=== PATIENT | male | born 1950 | race Caucasian/White ===

== ENCOUNTER 2024-03-09 15:05 | Outpatient (CLI) | payer MEDICARE, SELFPAY ==
--- OUTSIDE RECORDS SUMMARY | 2024-03-09 15:07 | XMS_ITS | Continuity of Care Document ---
Author Name [facility] Organization [facility] Care Team Providers Care Burling And Joining Supervisor Name Role Phone [facility] Unavailable Unavailable Problems Combined list of problems from Department of Defense and Veterans Affairs facilities. It does not include entries that were removed or entered in error. Problem Status Onset Date Problem Type Date of Resolution Comments Source Adenocarcinoma of rectum Active Condition Jan 26, 2019 Entered By: BOLA AWLSH CCA Comment: removed with colonocsopy, fregeunt F/U all neg [facility] Allergic rhinitis Active Condition Au g 2018 Entered By: BOLA WALSH [facility] Comment: had nasal polyps removed once [facility] Benign prostatic hyperplasia Active Condition Jan 26, 2019 Entered By: BOLA WALSH CCA Comment: bx in 2019 benign [facility] Chronic obstructive lung disease Active Condition [facility] Elevated diaphragm Active Condition A 2018 Entered By: BOLA WALSH CCA Comment: left elevated since 2017 [facility] Former heavy tobacco smoker Active Condition Jan 26, 2019 Entered By: BOLA WALSH CCA Comment: quit 1988 [facility] H/O: Deep vein thrombosis Active Condition Jan 26, 2019 Entered By: BOLA WALSH [facility] Comment: treated with blood thinner 9 months no recurrence [facility] Moderate persistent asthma Active Condition [facility] Obesity Active Condition [facility] Obstructive sleep apnea of adult Active Condition Jan 26, 2019 Entered By: BOLA WALSH CCA Comment: uses CPAP at night [facility] Pain in right knee Active Condition [facility] Diagnosis: ICD-10-CM Z01.118 Encntr for exam of ears and hearing w oth abnormal findings Active Diagnosis [facility] Diagnosis: ICD-10-CM J45.40 Moderate persistent asthma, uncomplicated Active Diagnosis [facility] Diagnosis: ICD-10-CM R22.32 Localized swelling, mass and lump, left upper limb Active Diagnosis [facility] Diagnosis: ICD-10-CM Z71.89 Other specified counseling Active Diagnosis [facility] Diagnosis: ICD-10-CM K43.9 Ventral hernia without obstruction or gangrene Active Diagnosis [facility] Diagnosis: ICD-10-CM L91.8 Other hypertrophic disorders of the skin Active Diagnosis [facility] Diagnosis: ICD-10-CM L98.9 Disorder of the skin and subcutaneous tissue, unspecified Active Diagnosis [facility] Diagnosis: ICD-10-CM Z00.8 Encounter for other general examination Active Diagnosis [facility] Medications Combined list of outpatient medications from Department of Defense and Veterans Affairs facilities.Medications provided include 1) outpatient medications from the last 15 months, and 2) patient-reported medications. Medication Details Route Status Patient Instructions Prescription Expires Prescription Number Last Dispense Date Ordering Provider Order Date Order Qty Source ALBUTEROL 90MCG/ACTUA T (CFC-F) INHL,ORAL,8 .5GM DOSE COUNTER ALBUTERO L 90MCG/AC TUAT (CFC-F) INHL,ORA L,8.5GM DOSE COUNTER Active INHALE 2 PUFFS BY INHALATI ON EVERY 4 HOURS NEEDED FOR SHORTNES S OF BREATH - SHAKE WELL Dec 27, 2023 2 Dec 27, 2024 [id number] Dec 28, 2023 [facility] (INHAL ATION) ACTIVE 12/27/2024 [id number] [facility]IRIDIANA WALSH 2023 2 [facility] ALBUTEROL 90MCG/ACTUA T (CFC-F) INHL,ORAL,8 .5GM DOSE COUNTER ALBUTERO L 90MCG/AC TUAT (CFC-F) INHL,ORA L,8.5GM DOSE COUNTER INHALE 2 PUFFS BY INHALATI ON EVERY 4 HOURS NEEDED FOR SHORTNES S OF BREATH - SHAKE WELL Jul 30, 2022 2 Jul 31, 2023 [id number] Mar 08, 2023 [facility] RESPIR ATORY (INHAL ATION) 07/31/2023 [id number] VIRIDIANA WALSH 2022 2 [facility] ASCORBIC ACID 500MG TAB ASCORBIC ACID 500MG TAB Active TAKE ONE TABLET BY MOUTH EVERY DAY October 27, 2023 100 October 27, 2024 [id number] B Jan 31, 2024 [facility] ORAL ACTIVE 10/27/2024 [id number] [facility] W[facility] 2023 100 [facility] ASCORBIC ACID 500MG TAB ASCORBIC ACID 500MG TAB Disconti nued TAKE ONE TABLET BY MOUTH EVERY DAY Jul 30, 2022 100 Jul 31, 2023 [id number] A Jun 18, 2023 [facility] ORAL DISCONT INUED 07/31/2023 [id number] [facility] 2022 100 [facility] BUDESONIDE SUSP,INHL BUDESONI DE SUSP,INH L Non-VA 0.5MG IN SALINE FOR NASAL RINSE NASAL EVERY DAY Jun 05, 2020 Non-[facility] Document ed by: JEAN-PAUL HICKS Document ed at: [facility] ACTIVE Lucy HICKS 2019 [facility] CHOLECALCIF ABILIO 25MCG (1,000UNIT) TAB CHOLECAL CIFEROL 25MCG (1,000UN IT) TAB Active TAKE TWO TABLETS BY MOUTH EVERY DAY October 27, 2023 200 October 27, 2024 [id number] Jan 31, 2024 [facility] ORAL ACTIVE 10/27/2024 [id number] [facility] 2023 200 [facility] CHOLECALCIF ABILIO 25MCG (1,000UNIT) TAB CHOLECAL CIFEROL 25MCG (1,000UN IT) TAB Disconti nued TAKE TWO TABLETS BY MOUTH EVERY DAY Jul 30, 2022 200 Jul 31, 2023 [id number] Jun 18, 2023 [facility] ORAL DISCONT INUED 07/31/2023 [id number] [facility] 2022 200 [facility] EPINEPHRINE (EQV-EPI-PE N) 0.3MG/0.3ML INJECTOR EPINEPHR INE (EQV-EPI -PEN) 0.3MG/0. 3ML INJECTOR Active INJECT 1 PEN DIRECTED NEEDED FOR SEVERE ALLERGIC REACTION Dec 27, 2023 2 Dec 27, 2024 [id number] Mar 16, 2024 [facility] ACTIVE 12/27/2024 [id number] [facility] 2023 [facility] EPINEPHRINE (EQV-EPI-PE N) 0.3MG/0.3ML INJECTOR EPINEPHR INE (EQV-EPI -PEN) 0.3MG/0. 3ML INJECTOR Disconti nued INJECT 1 PEN DIRECTED NEEDED FOR SEVERE ALLERGIC REACTION Jan 06, 2023 2 Jan 07, 2024 [id number] Dec 27, 2023 [facility] DISCONT INUED 01/07/2024 [id number] [facility] 2022 2 [facility] MONTELUKAST NA 10MG TAB [place] AST NA 10MG TAB Active TAKE ONE TABLET BY MOUTH EVERY DAY October 27, 2023 90 October 27, 2024 [id number] Jan 31, 2024 [facility] ORAL ACTIVE 10/27/2024 [id number] [facility] WAL[facility] 2023 90 [facility] MONTELUKAST NA 10MG TAB [place] AST NA 10MG TAB Disconti nued TAKE ONE TABLET BY MOUTH EVERY DAY Jul 30, 2022 90 Jul 31, 2023 [id number] Jun 18, 2023 [facility] ORAL DISCONT INUED 07/31/2023 [id number] [facility] WAL[facility] 2022 90 [facility] ROSUVASTATI N CA 20MG TAB ROSUVAST ATIN CA 20MG TAB Non-VA TAKE ONE TABLET BY MOUTH Dec 27, 2023 Non-VA Document ed by: VIRIDIANA WALSH Document ed at: [facility] ORAL ACTIVE VIRIDIANA WALSH 2023 [facility] TAMSULOSIN HCL 0.4MG CAP TAMSULOS IN HCL 0.4MG CAP Active TAKE ONE CAPSULE BY MOUTH AT BEDTIME FOR PROSTATE FOR PROSTATE Jan 28, 2024 90 Jan 28, 2025 [id number] Jan 28, 2024 [facility] ORAL ACTIVE 01/28/2025 [id number] [facility] W[facility] 2023 90 [facility] TAMSULOSIN HCL 0.4MG CAP TAMSULOS IN HCL 0.4MG CAP Disconti nued TAKE ONE CAPSULE BY MOUTH AT BEDTIME FOR PROSTATE FOR PROSTATE Dec 27, 2023 30 Jan 26, 2024 [id number] Dec 28, 2023 [facility] ORAL DISCONT INUED 01/26/2024 [id number] JILLIANVIRIDIANA 2023 30 [facility] Allergies, Adverse Reactions, Alerts Combined list of allergies from [facility] and [facility] facilities. It does not include entries that were removed or entered in error. Substance Category Reaction Severity Reaction type Status Date Reported Comments Source [facility] Propensity to adverse reaction (finding) Anaphylaxis active 9 [facility] [place] Propensity to adverse reaction (finding) Allergic rhinitis [facility] Propensity to adverse reaction (finding) Allergic rhinitis active 9 [facility] [place] Propensity to adverse reaction (finding) Allergic rhinitis active 9 [facility] [place] Propensity to adverse reaction (finding) Allergic rhinitis active 9 [facility] Immunizations Combined list of available immunizations from the Department of [facility] and [facility] facilities. Immunization Series Date Given Administered By Site Reaction Lot Number CVX Code Drug Php Mysql Developer Status Comments Source PNEUMOCOCCAL CONJUGATE PCV20, POLYSACCHARID E [id number] CONJUGATE, ADJUVANT, PF 2022 216 complet ed [facility] INFLUENZA, ADJUVANTED, QUADRIVALENT, PF 2022 205 complet ed [facility] COVID-19 (PFIZER), MRNA, LNP-S, BIVALENT, PF, 30 MCG/0.3 ML DOSE 2022 NARESH MORALES DELTO ID [id number] 300 complet ed [facility] INFLUENZA, HIGH-DOSE, QUADRIVALENT, PF 2021 197 complet ed [facility] INFLUENZA, UNSPECIFIED FORMULATION 2021 88 complet ed [facility] TDAP 2021 115 complet ed [facility] COVID-19 (MODERNA), MRNA, LNP-S, PF, 100 MCG/0.5ML DOSE OR 50 MCG/0.25ML DOSE 3 2021 207 complet ed [facility] INFLUENZA, HIGH-DOSE, QUADRIVALENT, PF 2020 197 complet ed [facility] INFLUENZA, UNSPECIFIED FORMULATION 2020 88 complet ed [facility] COVID-19 (MODERNA), MRNA, LNP-S, PF, 100 MCG/0.5 ML DOSE 2 2020 207 complet ed [facility] COVID-19 (MODERNA), MRNA, LNP-S, PF, 100 MCG/0.5 ML DOSE 1 2020 207 complet ed [facility] INFLUENZA, INJECTABLE, QUADRIVALENT, PRESERVATIVE FREE 2019 150 complet ed [facility] ZOSTER RECOMBINANT 2 2019 187 complet ed [facility] ZOSTER RECOMBINANT 1 2019 187 complet ed [facility] INFLUENZA, ADJUVANTED, TRIVALENT, PF 2018 168 complet ed [facility] INFLUENZA, HIGH-DOSE, TRIVALENT, PF 2017 135 complet ed [facility] INFLUENZA, HIGH-DOSE, TRIVALENT, PF 2016 135 complet ed [facility] PNEUMOCOCCAL POLYSACCHARID E PPV23 2014 33 complet ed [facility] INFLUENZA, SPLIT VIRUS, TRIVALENT, PF 2013 140 complet ed [facility] PNEUMOCOCCAL CONJUGATE PCV 13 2013 133 complet ed [facility] ZOSTER LIVE 2012 121 complet ed [facility] TDAP 2012 115 complet ed [facility] NOVEL INFLUENZA-H1N 1-09 2009 127 complet ed [facility] TD (ADULT), 2 LF TETANUS TOXOID, PRESERVATIVE FREE, ADSORBED 2002 09 complet ed [facility] TD(ADULT) UNSPECIFIED FORMULATION 2002 139 complet ed [facility] Results Combined list of recent chemistry, hematology and other laboratory results from Department of Defense and Veterans Affairs, ranging from 15 months to all on record, depending upon the facility. Order Name Results Value Reference Range Date Interpretation Specimen Comments Source HEMOGLOBI N A1C HEMOGLOBIN A1C/HEMOGLO BIN.TOTAL IN BLOOD 5.8 4.0 - 6.0 12/26 Specimen Type: BLOOD Comment: Values obtained from A1C measurement s can vary. For typical A1C assays, a reported value of 7.0 could actually be between 6.7 and 7.3 if measured by a reference method. A reported value of 9.0 could actually be between 8.7 and 9.3. Ref: [email or web address]://[email or web address] ngsp.org/[place] Pdata.asp Ordering Provider: LANETTE WALSH Report Released Date/Time: Dec 27, 2023 10:58 AM Reporting Lab: [facility] [address] Performing Lab: [facility] [address] [facility] CBC & DIFF LEUKOCYTES [#/VOLUME] IN BLOOD BY AUTOMATED COUNT 5.41 10*3/u L 4.0 - 11.0 01/06 Specimen Type: BLOOD Comment: Automated Differentia l Performed Ordering Provider: LANETTE WALSH Report Released Date/Time: Jan 06, 2023 10:26 AM Reporting Lab: [facility] [address] Performing Lab: [facility] [address] [facility] CBC & DIFF ERYTHROCYTE S [#/VOLUME] IN BLOOD BY AUTOMATED COUNT 4.89 10*6/u L 4.6 - 6.2 01/06 Specimen Type: BLOOD Comment: Automated Differentia l Performed Ordering Provider: LANETTE WALSH Report Released Date/Time: Jan 06, 2023 10:26 AM Reporting Lab: [facility] [address] Performing Lab: [facility] [address] [facility] CBC & DIFF HEMOGLOBIN [MASS/VOLUM E] IN BLOOD 15.1 g/dL 13.5 - 17.9 01/06 Specimen Type: BLOOD Comment: Automated Differentia l Performed Ordering Provider: LANETTE WALSH Report Released Date/Time: Jan 06, 2023 10:26 AM Reporting Lab: [facility] [address] Performing Lab: [facility] [address] [facility] CBC & DIFF HEMATOCRIT [VOLUME FRACTION] OF BLOOD BY AUTOMATED COUNT 46.2 41 - 54 01/06 Specimen Type: BLOOD Comment: Automated Differentia l Performed Ordering Provider: LANETTE WALSH Report Released Date/Time: Jan 06, 2023 10:26 AM Reporting Lab: [facility] [address] Performing Lab: [facility] [address] [facility] CBC & DIFF MCV [ENTITIC VOLUME] BY AUTOMATED COUNT 94.5 fL 80 - 100 01/06 Specimen Type: BLOOD Comment: Automated Differentia l Performed Ordering Provider: LANETTE WALSH Report Released Date/Time: Jan 06, 2023 10:26 AM Reporting Lab: [facility] [address] Performing Lab: [facility] [address] [facility] CBC & DIFF MCH [ENTITIC MASS] BY AUTOMATED COUNT 30.9 pg 27 - 33 01/06 Specimen Type: BLOOD Comment: Automated Differentia l Performed Ordering Provider: LANETTE WALSH Report Released Date/Time: Jan 06, 2023 10:26 AM Reporting Lab: [facility] [address] Performing Lab: [facility] [address] [facility] CBC & DIFF MCHC [MASS/VOLUM E] BY AUTOMATED COUNT 32.7 g/dL 32.0 - 37.5 01/06 Specimen Type: BLOOD Comment: Automated Differentia l Performed Ordering Provider: LANETTE WALSH Report Released Date/Time: Jan 06, 2023 10:26 AM Reporting Lab: [facility] [address] Performing Lab: [facility] [address] [facility] CBC & DIFF PLATELETS [#/VOLUME] IN BLOOD BY AUTOMATED COUNT 219 10*3/u L 150 - 400 01/06 Specimen Type: BLOOD Comment: Automated Differentia l Performed Ordering Provider: LANETTE WALSH Report Released Date/Time: Jan 06, 2023 10:26 AM Reporting Lab: [facility] [address] Performing Lab: [facility] [address] [facility] CBC & DIFF PLATELET MEAN VOLUME [ENTITIC VOLUME] IN BLOOD BY AUTOMATED COUNT 9.7 fL 7.4 - 10.4 01/06 Specimen Type: BLOOD Comment: Automated Differentia l Performed Ordering Provider: LANETTE WALSH Report Released Date/Time: Jan 06, 2023 10:26 AM Reporting Lab: [facility] [address] Performing Lab: [facility] [address] [facility] CBC & DIFF NEUTROPHILS /100 LEUKOCYTES IN BLOOD BY MANUAL COUNT 61.1 01/06 Specimen Type: BLOOD Comment: Automated Differentia l Performed Ordering Provider: LANETTE WALSH Report Released Date/Time: Jan 06, 2023 10:26 AM Reporting Lab: [facility] [address] Performing Lab: [facility] [address] [facility] CBC & DIFF LYMPHOCYTES /100 LEUKOCYTES IN BLOOD BY MANUAL COUNT 17.2 01/06 Specimen Type: BLOOD Comment: Automated Differentia l Performed Ordering Provider: LANETTE WALSH Report Released Date/Time: Jan 06, 2023 10:26 AM Reporting Lab: [facility] [address] Performing Lab: [facility] [address] [facility] CBC & DIFF MONOCYTES/1 00 LEUKOCYTES IN BLOOD BY AUTOMATED COUNT 10.0 01/06 Specimen Type: BLOOD Comment: Automated Differentia l Performed Ordering Provider: LANETTE WALSH Report Released Date/Time: Jan 06, 2023 10:26 AM Reporting Lab: [facility] [address] Performing Lab: [facility] [address] [facility] CBC & DIFF EOSINOPHILS /100 LEUKOCYTES IN BLOOD BY AUTOMATED COUNT 9.8 01/06 Specimen Type: BLOOD Comment: Automated Differentia l Performed Ordering Provider: LANETTE WALSH Report Released Date/Time: Jan 06, 2023 10:26 AM Reporting Lab: [facility] [address] Performing Lab: [facility] [address] [facility] CBC & DIFF BASOPHILS/1 00 LEUKOCYTES IN BLOOD BY MANUAL COUNT 1.3 01/06 Specimen Type: BLOOD Comment: Automated Differentia l Performed Ordering Provider: LANETTE WALSH Report Released Date/Time: Jan 06, 2023 10:26 AM Reporting Lab: [facility] [address] Performing Lab: [facility] [address] [facility] CBC & DIFF ERYTHROCYTE DISTRIBUTIO N WIDTH [RATIO] BY AUTOMATED COUNT 13.2 11.5 - 14.5 01/06 Specimen Type: BLOOD Comment: Automated Differentia l Performed Ordering Provider: LANETTE WALSH Report Released Date/Time: Jan 06, 2023 10:26 AM Reporting Lab: [facility] [address] Performing Lab: [facility] [address] [facility] CBC & DIFF LYMPHOCYTES [#/VOLUME] IN BLOOD BY AUTOMATED COUNT 0.93 10*3/u L 1.0 - 4.0 01/06 L Specimen Type: BLOOD Comment: Automated Differentia l Performed Ordering Provider: LANETTE WALSH Report Released Date/Time: Jan 06, 2023 10:26 AM Reporting Lab: [facility] [address] Performing Lab: [facility] [address] [facility] CBC & DIFF MONOCYTES [#/VOLUME] IN BLOOD BY AUTOMATED COUNT 0.54 10*3/u L 0.1 - 1.0 01/06 Specimen Type: BLOOD Comment: Automated Differentia l Performed Ordering Provider: LANETTE WALSH Report Released Date/Time: Jan 06, 2023 10:26 AM Reporting Lab: [facility] [address] Performing Lab: [facility] [address] [facility] CBC & DIFF NEUTROPHILS [#/VOLUME] IN BLOOD BY AUTOMATED COUNT 3.31 10*3/u L 2.0 - 7.7 01/06 Specimen Type: BLOOD Comment: Automated Differentia l Performed Ordering Provider: LANETTE WALSH Report Released Date/Time: Jan 06, 2023 10:26 AM Reporting Lab: [facility] [address] Performing Lab: [facility] [address] [facility] CBC & DIFF EOSINOPHILS [#/VOLUME] IN BLOOD BY AUTOMATED COUNT 0.53 10*3/u L 0 - 0.5 01/06 H Specimen Type: BLOOD Comment: Automated Differentia l Performed Ordering Provider: LANETTE WALSH Report Released Date/Time: Jan 06, 2023 10:26 AM Reporting Lab: [facility] [address] Performing Lab: [facility] [address] [facility] CBC & DIFF BASOPHILS [#/VOLUME] IN BLOOD BY AUTOMATED COUNT 0.07 10*3/u L 0 - 0.2 01/06 Specimen Type: BLOOD Comment: Automated Differentia l Performed Ordering Provider: LANETTE WALSH Report Released Date/Time: Jan 06, 2023 10:26 AM Reporting Lab: [facility] [address] Performing Lab: [facility] [address] [facility] CBC & DIFF IG(META,MYE LO,PRO) 0.6 01/06 Specimen Type: BLOOD Comment: Automated Differentia l Performed Ordering Provider: LANETTE WALSH Report Released Date/Time: Jan 06, 2023 10:26 AM Reporting Lab: [facility] [address] Performing Lab: [facility] [address] [facility] CBC & DIFF IMMATURE GRANULOCYTE S [PRESENCE] IN BLOOD BY AUTOMATED COUNT 0.03 10*3/u L 0 - 0.1 01/06 Specimen Type: BLOOD Comment: Automated Differentia l Performed Ordering Provider: LANETTE WALSH Report Released Date/Time: Jan 06, 2023 10:26 AM Reporting Lab: [facility] [address] Performing Lab: [facility] [address] [facility] COMPREHEN SIVE METABOLIC PANEL+MG CREATININE [MASS/VOLUM E] IN SERUM OR PLASMA 1.0 mg/dL 0.7 - 1.2 01/06 Specimen Type: PLASMA No comment entered. Ordering Provider: LANETTE WALSH Report Released Date/Time: Jan 06, 2023 10:26 AM Reporting Lab: [facility] [address] Performing Lab: [facility] [address] [facility] COMPREHEN SIVE METABOLIC PANEL+MG UREA NITROGEN [MASS/VOLUM E] IN SERUM OR PLASMA 16 mg/dL 8 - 26 01/06 Specimen Type: PLASMA No comment entered. Ordering Provider: ALNETTE WALSH Report Released Date/Time: Jan 06, 2023 10:26 AM Reporting Lab: [facility] [address] Performing Lab: [facility] [address] [facility] COMPREHEN SIVE METABOLIC PANEL+MG GLUCOSE [MASS/VOLUM E] IN SERUM OR PLASMA 109 mg/dL 70 - 100 01/06 H Specimen Type: PLASMA No comment entered. Ordering Provider: LANETTE WALSH Report Released Date/Time: Jan 06, 2023 10:26 AM Reporting Lab: [facility] [address] Performing Lab: [facility] [address] [facility] COMPREHEN SIVE METABOLIC PANEL+MG SODIUM [MOLES/VOLU ME] IN SERUM OR PLASMA 138 mmol/L 136 - 145 01/06 Specimen Type: PLASMA No comment entered. Ordering Provider: LANETTE WALSH Report Released Date/Time: Jan 06, 2023 10:26 AM Reporting Lab: [facility] [address] Performing Lab: [facility] [address] [facility] COMPREHEN SIVE METABOLIC PANEL+MG POTASSIUM [MOLES/VOLU ME] IN SERUM OR PLASMA 4.0 mmol/L 3.5 - 5.1 01/06 Specimen Type: PLASMA No comment entered. Ordering Provider: LANETTE WALSH Report Released Date/Time: Jan 06, 2023 10:26 AM Reporting Lab: [facility] [address] Performing Lab: [facility] [address] [facility] COMPREHEN SIVE METABOLIC PANEL+MG CHLORIDE [MOLES/VOLU ME] IN SERUM OR PLASMA 104 mmol/L 98 - 107 01/06 Specimen Type: PLASMA No comment entered. Ordering Provider: LANETTE WALSH Report Released Date/Time: Jan 06, 2023 10:26 AM Reporting Lab: [facility] [address] Performing Lab: [facility] [address] [facility] COMPREHEN SIVE METABOLIC PANEL+MG CARBON DIOXIDE, TOTAL [MOLES/VOLU ME] IN SERUM OR PLASMA 26 mmol/L 22 - 29 01/06 Specimen Type: PLASMA No comment entered. Ordering Provider: LANETTE WALSH Report Released Date/Time: Jan 06, 2023 10:26 AM Reporting Lab: [facility] [address] Performing Lab: [facility] [address] [facility] COMPREHEN SIVE METABOLIC PANEL+MG CALCIUM [MASS/VOLUM E] IN SERUM OR PLASMA 8.8 mg/dL 8.4 - 10.2 01/06 Specimen Type: PLASMA No comment entered. Ordering Provider: LANETTE WALSH Report Released Date/Time: Jan 06, 2023 10:26 AM Reporting Lab: [facility] [address] Performing Lab: [facility] [address] [facility] COMPREHEN SIVE METABOLIC PANEL+MG PROTEIN [MASS/VOLUM E] IN SERUM OR PLASMA 6.9 g/dL 6.0 - 8.3 01/06 Specimen Type: PLASMA No comment entered. Ordering Provider: LANETTE WALSH Report Released Date/Time: Jan 06, 2023 10:26 AM Reporting Lab: [facility] [address] Performing Lab: [facility] [address] [facility] COMPREHEN SIVE METABOLIC PANEL+MG ALBUMIN [MASS/VOLUM E] IN SERUM OR PLASMA 4.1 g/dL 3.5 - 5.2 01/06 Specimen Type: PLASMA No comment entered. Ordering Provider: LANETTE WALSH Report Released Date/Time: Jan 06, 2023 10:26 AM Reporting Lab: [facility] [address] Performing Lab: [facility] [address] [facility] COMPREHEN SIVE METABOLIC PANEL+MG BILIRUBIN.T OTAL [MASS/VOLUM E] IN SERUM OR PLASMA 0.9 mg/dL 0.2 - 1.2 01/06 Specimen Type: PLASMA No comment entered. Ordering Provider: LANETTE WALSH Report Released Date/Time: Jan 06, 2023 10:26 AM Reporting Lab: [facility] [address] Performing Lab: [facility] [address] [facility] COMPREHEN SIVE METABOLIC PANEL+MG MAGNESIUM [MASS/VOLUM E] IN SERUM OR PLASMA 2.1 mg/dL 1.6 - 2.6 01/06 Specimen Type: PLASMA No comment entered. Ordering Provider: LANETTE WALSH Report Released Date/Time: Jan 06, 2023 10:26 AM Reporting Lab: [facility] [address] Performing Lab: [facility] [id number] [facility] COMPREHEN SIVE METABOLIC PANEL+MG ANION GAP IN SERUM OR PLASMA 8 mmol/L 5 - 15 01/06 Specimen Type: PLASMA No comment entered. Ordering Provider: LANETTE WALSH Report Released Date/Time: Jan 06, 2023 10:26 AM Reporting Lab: [facility] [id number] Performing Lab: [facility] [id number] [facility] COMPREHEN SIVE METABOLIC PANEL+MG ALKALINE PHOSPHATASE [ENZYMATIC ACTIVITY/VO LUME] IN SERUM OR PLASMA 98 U/L 40 - 150 01/06 Specimen Type: PLASMA No comment entered. Ordering Provider: LANETTE WALSH Report Released Date/Time: Jan 06, 2023 10:26 AM Reporting Lab: [facility] [facility] [id number] Performing Lab: [facility] [id number] [facility] COMPREHEN SIVE METABOLIC PANEL+MG ALANINE AMINOTRANSF ERASE [ENZYMATIC ACTIVITY/VO LUME] IN SERUM OR PLASMA 13 U/L 01/06 Specimen Type: PLASMA No comment entered. Ordering Provider: LANETTE WALSH Report Released Date/Time: Jan 06, 2023 10:26 AM Reporting Lab: [facility] [id number] Performing Lab: [facility] [address] [facility] COMPREHEN SIVE METABOLIC PANEL+MG ASPARTATE AMINOTRANSF ERASE [ENZYMATIC ACTIVITY/VO LUME] IN SERUM OR PLASMA 17 U/L 01/06 Specimen Type: PLASMA No comment entered. Ordering Provider: LANETTE WALSH Report Released Date/Time: Jan 06, 2023 10:26 AM Reporting Lab: [facility] [phone] Performing Lab: [facility] [address] [facility] COMPREHEN SIVE METABOLIC PANEL+MG GLOMERULAR FILTRATION RATE/1.73 SQ M.PREDICTED [VOLUME RATE/AREA] IN SERUM, PLASMA OR BLOOD BY CREATININE- BASED FORMULA (CKD-EPI 2020) 79 01/06 Specimen Type: PLASMA No comment entered. Ordering Provider: LANETTE WALSH Report Released Date/Time: Jan 06, 2023 10:26 AM Reporting Lab: [facility] [phone] Performing Lab: [facility] [address] [facility] PSA PROSTATE SPECIFIC AG [MASS/VOLUM E] IN SERUM OR PLASMA 9.35 ng/mL 01/06 H Specimen Type: SERUM No comment entered. Ordering Provider: LANETTE WALSH Report Released Date/Time: Jan 06, 2023 10:26 AM Reporting Lab: [facility] [id number] Performing Lab: [facility] [phone] [facility] Vital Signs Combined list of inpatient and outpatient Vital Signs from Department of [facility] and [facility], ranging from 12 months to all on record, depending upon the facility. Vital Sign Value Date Comments Source SYSTOLIC BLOOD PRESSURE 130 12/27/2023 10:27:12 [facility] DIASTOLIC BLOOD PRESSURE 77 12/27/2023 10:27:12 [facility] PULSE OXIMETRY 96 12/27/2023 10:27:12 [facility] WEIGHT 251.7 12/27/2023 10:27:12 [facility] BMI 38kg/m2 12/27/2023 10:27:12 [facility] PAIN 6 12/27/2023 10:27:12 [facility] HEIGHT 68 12/27/2023 10:27:12 [facility] TEMPERATURE 98.1 12/27/2023 10:27:12 [facility] PULSE 69 12/27/2023 10:27:12 [facility] RESPIRATION 16 12/27/2023 10:27:12 [facility] Encounters Combined list of: 1) Encounters from Department of Veterans Affairs facilities going back up to thelast 18 months. 2) Encounters from the Department of [facility] facilities going back up to 280 months. Location Location Details Encounter Type Encounter Number Reason For Visit Attending Provider ADM Date DC Date Status Disposition Source SUJATHA COOPER [facility] Outpatient Encounter [id number] 01/06 CHARLES ROB [facility] OFFICE O/P EST MOD 30-39 MIN [id number] Diagnos is: ICD-10- CM Z00.8 Encount er for other general examina tion
Walter WALSH EBECCA L 01/06 [facility] UNLISTED SPEC DERM SVC/PX [id number] Diagnos is: ICD-10- CM L98.9 Disorde r of the skin and subcuta neous tissue, unspeci fied
SUSAN REIS 01/06 [facility] Outpatient Encounter [id number] Diagnos is: ICD-10- CM L91.8 Other hypertr ophic disorde rs of the skin
CHUSID,JAYA ECCA L 01/06 [facility] [place] [facility] Outpatient Encounter [id number] 01/06 [facility] OFF/OP CONSLTJ NEW/EST HI 55 [id number] Diagnos is: ICD-10- CM K43.9 Ventral hernia without obstruc tion or gangren e
NARDA CAMERON 01/26 [facility] PRO PHONE CALL 5-10 MIN [id number] Diagnos is: ICD-10- CM Z71.89 Other specifi ed counseling services manager ing<br/ > SINGH,AN JASWINDER G 01/27 [facility] Outpatient Encounter [id number] 01/27 [facility] OFFICE O/P EST HI 40-54 MIN [id number] Diagnos is: ICD-10- CM R22.32 Localiz ed garry g, mass and lump, left upper limb
NARDA CAMERON 02/19 [facility] [place] [facility] Outpatient Encounter [id number] 02/19 [facility] [place] [facility] Outpatient Encounter [id number] 02/24 [place] [facility] [place] [facility] Outpatient Encounter [id number] 02/26 [place] [facility] [place] [facility] Outpatient Encounter [id number] 03/01 [facility] OFFICE O/P EST MOD 30 MIN [id number] Diagnos is: ICD-10- CM J45.40 Moderat e persist ent asthma, uncompl icated< br/> Walter WALSHCA L 12/26 [facility] [place] [facility] OFF/OP EST MAY X REQ PHY/QHP [id number] Diagnos is: ICD-10- CM Z01.118 Encntr for exam of ears and hearing w oth abnorma l finding s
THADDEUS SIMON 01/12 [facility] Outpatient Encounter [id number] 01/27 [facility] Outpatient Encounter [id number] 01/30 [facility] Social History Combined list of available smoking, tobacco, and other social history from Department of Defense and [facility] facilities. Social History Type Response Date Comment Sourc e Tobacco smoking status NHIS VA-TOBACCO FORMER USER 12/27/2023 [facility] History of tobacco use MO-TOBACCO QUIT 1 5 YRS OR MORE 12/27/2023 [facility] History of tobacco use MO-TOBACCO QUIT 1 5 YRS OR MORE 01/06/2023 [facility] History of tobacco use VA-TOBACCO NEVER USED 01/05/2022 [facility] History of tobacco use VA-TOBACCO FORMER USER 01/14/2021 [facility] History of tobacco use MO-TOBACCO QUIT 1 5 YRS OR MORE 10/23/2019 [facility] History of tobacco use VA-TOBACCO FORMER USER 01/19/2019 [facility]
--- OUTSIDE RECORDS SUMMARY | 2024-03-09 15:09 | XMS_ITS | Encounter Summary ---
Author Organization [facility] Address [address] [place] [address] Care Team Providers Care Trauma Surgeon Name Role Phone Elsewhere, Pcp Primary Care Provider Unavailabl e Encounter Details Date Type Department Care Team (Late st Contact Info) Description 12/28/2023 12:10 PM CDT Lab [facility] [address] [place] [phone] Quentin Blevins M.D. [address] [place] [phone] Malignant Neoplasm Of Nose Basal Cell Social History Tobacco Use Types Packs/Day Years Used Date Smoking Tobacco: Former Cigarettes 0.5 21.1 0 11/28/1966 - 01/08/1988 Smokeless Tobacco: Former Chew Quit: 1997 Comments:about 1 pkg a week Alcohol Use Standard Drinks/Week Comments Yes 6 (1 standard drink = 0.6 oz pur e alcohol) occasional Social Connection and Isolat ion Panel [NHANES] Answer Date Recorded In a typical week, how many times do you talk on the phone with family, friends, or neighbors? More than three times a week 10/29/2020 How often do you get togethe r with friends or relatives? More than three times a week 10/29/2020 How often do you attend chur ch or gnosticist services? More than 4 times per year 10/29/2020 Do you belong to any clubs o r organizations such as taoism groups, unions, fraternal or athletic groups, or school groups? Yes 10/29/2020 How often do you attend meet ings of the clubs or organizations you belong to? More than 4 times per year 10/29/2020 Are you , , di vorced, , never , or living with a partner? 10/29/2020 AUDIT-C Answer Date Recorded Q1: How often do you have a drink containing alc ohol? 2-3 times a week 10/29/2020 Q2: How many drinks containi ng alcohol do you have on a typical day when you are drinking? 1 or 2 10/29/2020 Q3: How often do you have si x or more drinks on one occasion? Never 10/29/2020 Overall Financial Resource Strain (CARDIA) Answe r Date Recorded How hard is it for you to pa y for the very basics like food, housing, medical care, and heating? Not very hard 10/29/2020 PHQ-2 Answer Date Recorded PHQ-2 Score 0 11/15/2020 [facility] - Occupational Stress Questionnaire Answer Date Recorded Do you feel stress - tense, restless, nervous, or anxious, or unable to sleep at night because your mind is troubled all the time - these days? Not at all 10/29/2020 Exercise Vital Sign Answer Date Recorde d On average, how many days pe r week do you engage in moderate to strenuous exercise (like a brisk walk)? 0 days 10/29/2020 On average, how many minutes do you engage in exercise at this level? 0 min 10/29/2020 Hunger Vital Sign Answer Date Recorded Within the past 12 months, y ou worried that your food would run out before you got the money to buy more. Never true 10/30/19 21 Within the past 12 months, t he food you bought just didn't last and you didn't have money to get more. Never true 10/29/2020 PRAPARE - Transportation Answer Date Re corded In the past 12 months, has l ack of transportation kept you from medical appointments or from getting medications? No 10/19 In the past 12 months, has l ack of transportation kept you from meetings, work, or from getting things needed for daily living? No 10/29/2020 Housing Stability Vital Sign Answer Larry e Recorded In the last 12 months, was t here a time when you were not able to pay the mortgage or rent on time? No 10/29/2020 In the last 12 months, how many places have you lived? 2 10/29/2020 In the last 12 months, was t here a time when you did not have a steady place to sleep or slept in a fci (including now)? No 10/29/2020 Nutrition Answer Date Recorded Nutrition: EVOO Fat Source Yes 10/29 On average, how many serving s of fruits and vegetables do you eat per day (serving size is equal to 1 cup or approximately the size of a tennis ball)? 2-3 10/29/2020 Dental Answer Date Recorded Dental: Regular Dentist Unknown 11/02/19 Employment Answer Date Recorded Employment status Retired 10/29/2020 Education Answer Date Recorded What is the highest level of school you have completed or the highest degree you have received? 12th grade 02/10/2019 Sex and Gender Information Value Date Recorded Sex Assigned at Not on file Gender Identity Not on file Sexual Orientation Not on file documented as of this encounter Plan of Treatment Upcoming Encounters Date Type Department Care Team (Late st Contact Info) Description 03/13/2024 8:00 AM CDT Procedure visit Department of Dermatology in [place], [place] [address] [place] [phone] Quentin Blevins M.D. [address] [place] [phone] 03/15/2024 2:40 PM CDT Appointment Department of Laboratory Medicine and Pathology, [facility] in [place], [place] [address] [place] [phone] Rekha Munoz M.D. [address] [place] [phone] 03/15/2024 4:15 PM CDT Office Visit Department of Cardiovascular Medicine in [place], [place] [address] [place] [phone] Rekha Munoz M.D. [address] [place] [phone] documented as of this encounter Procedures Procedure Name Priority Date/Time Associated Diagnosis Comments PATHOLOGY REVIEW OF OUTSIDE MATERIAL Routine 12/28/2023 12:09 PM CDT Malignant Neoplasm Of Nose Basal Cell documented in this encounter Results * Pathology Review of Outside Material (12/28/2023 12:09 PM CDT) 12/31/2023 11:41 AM CDT DTL Report electronically signed by Aga Bowers M.D. I verify that I have examined all relevant slides/materi als for the specimen(s) and rendered or confirmed the diagnosis. 12/31/2023 11:41 AM CDT DTL Material Received A. [id number]: Skin, nose, dorsal, mid ? 2 stained slides 12/31/2023 11:41 AM CDT DTL Interpretation FINAL DIAGNOSIS A. ??Skin, nose, dorsal, mid, [id number], 11/02/2023: Superficial basal cell carcinoma, transected and involving biopsy borders Digital imaging was used in the diagnostic assessment of this case. 12/31/2023 11:41 AM CDT DTL Varies 12/28/2023 12:0 9 PM CDT 12/28/2023 12:10 PM CDT Quentin Blevins M.D. LAB SURG PATH [facility] [address] [place] [address], [facility] DTL [address] [place] [address] documented in this encounter Visit Diagnoses Diagnosis Malignant Neoplasm Of Nose Basal Cell documented in this encounter Care Teams Trauma Surgeon Relationship Specialty Start Date End Date Elsewhere, Pcp PCP - General Family Medicine 04/21/20 documented as of this encounter
--- OUTSIDE RECORDS SUMMARY | 2024-03-09 15:09 | XMS_ITS | Encounter Summary ---
Author Organization [facility] Address [address] [place] [address] Care Team Providers Care Dental Laboratory Supervisor Name Role Phone Elsewhere, Pcp Primary Care Provider Unavailabl e Encounter Details Date Type Department Care Team (Late st Contact Info) Description 12/24/2023 Orders Only Department of Dermatology in [place], [place] [address] [place] [phone] Quentin Blevins M.D. [address] [place] [phone] Malignant Neoplasm Of Nose Basal Cell (Primary Dx) Social History Tobacco Use Types Packs/Day Years [...] any clubs o r organizations such as mosque groups, unions, fraternal or athletic groups, or [...] Answer Date Recorded PHQ-2 Score 0 11/15/2020 [facility]ational Stress Questionnaire Answer [...] place to sleep or slept in a group home (including now)? No 10/29/2020 Nutrition Answer Date [...] CDT Procedure visit Department of Dermatology in [place], [place] [address] [place] [phone] Quentin Blevins M.D. [address] [place] [phone] 03/15/2024 2:40 PM CDT Appointment Department of Laboratory Medicine and Pathology, [facility], in [place], [place] [address] [place] [phone] Rekha Munoz M.D. [address] [place] [phone] 03/15/2024 4:15 PM CDT Office Visit Department of Cardiovascular Medicine in [place], [place] [address] [place] [phone] Rekha Munoz M.D. [address] [place] [phone] documented as of this encounter Results * Pathology Review of Outside Material (12/28/2023 12:09 PM CDT) 12/31/2023 11:41 AM CDT DTL Report electronically signed by Aga Bowers M.D. I verify that I have examined all relevant slides/materi als for the specimen(s) and rendered or confirmed the diagnosis. 12/31/2023 11:41 AM CDT DTL Material Received A. [id number]: Skin, nose, dorsal, mid ? 2 stained slides 12/31/2023 11:41 AM CDT DTL Interpretation FINAL DIAGNOSIS A. ??Skin, nose, dorsal, mid, [id number], 11/02/2023: Superficial basal cell carcinoma, transected and involving biopsy borders Digital imaging was used in the diagnostic assessment of this case. 12/31/2023 11:41 AM CDT DTL Varies 12/28/2023 12:0 9 PM CDT 12/28/2023 12:10 PM CDT Quentin Blevins M.D. LAB SURG PATH [facility] [address] [place] [address], [facility] DTL [address] [place] [address] documented in this encounter Visit Diagnoses Diagnosis Malignant Neoplasm Of Nose Basal Cell- Primary documented in this encounter Care Teams Dental Laboratory Supervisor Relationship Specialty Start Date End Date Elsewhere, Pcp PCP - General Family Medicine 04/21/20 documented as of this encounter
--- OUTSIDE RECORDS SUMMARY | 2024-03-09 15:09 | XMS_ITS ---
Author Organization [facility] Address [address] [place] [address] Care Team Providers Care Vacuum Bottle Assembler Name Role Phone Elsewhere, Pcp Primary Care Provider Unavailabl e Active Problems Problem Noted Date Diagnosed Date History Of Falling 11/15/2020 Anticoagulant Therapy 10/29/2020 Primary Osteoarthritis Knee Right 03/18/2020 Pain Knee Right 03/18/2020 Rhinosinusitis Chronic 12/28/2019 Ankle Joint Disorder Right 02/09/2019 Rhinitis Allergic 10/24/2018 Asthma Moderate Persistent With History Of Tobac co Use 10/24/2018 Apnea Sleep Obstructive 10/24/2018 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 Overview (10/24/2018): Elevated left hemidiaphragm since November 2017 Polyposis Nasal 10/24/2018 Overview (10/24/2018): S/P prior nasal polypectomy Personal History Of Other Ma lignant 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 Past Plans No past plan information found. Radiation Treatments * No radiation treatments are documented for this patient in [facility]. Treatments may have been administered in another system. Lifetime Dose Tracking * Chemical Lifetime Dose Automatic Entry Manual Entr y Radiation 63.25 mGy 63.25 mGy 0 mGy Fluoro Time 20.3 minutes 20.3 minutes 0 minutes Resolved Problems Problem Noted Date Diagnosed Date Resolved Date Nephrolithiasis 03/28/2020 10/29/2020 Overview (03/28/2020): Added automatically from request for surgery [id number] Asthma With Chronic Obstruct trini Pulmonary Disease 10/24/2018 10/29/2020 Thromboembolism NOS 06/21/2017 10/30/19 21 Overview (10/29/2020): coincided on lower leg Obstructive Sleep Apnea Adult 10/29/2020 Malignant Neoplasm Of Rectum Adenocarcinoma 10/29/2020 Overview (10/24/2018): 2006, s/p endoscopy polypectomy without recurrence
--- OUTSIDE RECORDS SUMMARY | 2024-03-09 15:09 | XMS_ITS | Referral Summary ---
Author Organization [facility] Address [address] [place] [address] Care Team Providers Care Automatic Oven Operator Name Role Phone Elsewhere, Pcp Primary Care Provider Unavailabl e Source Comments Patient records contain information from all sites at [facility]. For routine questions regarding patient records, call [phone] during business hours, M-F 8:00 AM - 5:00 PM Central Time. Record requests for emergency care only can be directed to [phone] at any time.[facility] Encounters Date Type Department Care Team Description 12/28/2023 12:10 PM CDT Lab RST RO LMP [address] [place] [phone] Quentin Blevins M.D. Malignant Neoplasm Of Nose Basal Cell 12/24/2023 Orders Only Department of Dermatology in [place], [place] [address] [place] [phone] Quentin Blevins M.D. Malignant Neoplasm Of Nose Basal Cell (Primary Dx) 12/10/2023 Orders Only Division of Pulmonary Medicine in [place], [place] [address] [place] [phone] Richard Bolden M.D. from Last 3 Months Allergies Active Allergy Reactions Criticality Noted Date Comments Bee Venom Protein (Honey Bee) Other (see comments) 10/09/2013 Blood poisoning Grass Pollen Other (see comments) 01/26/2019 rhinitis Mold Other (see comments) 10/24/2018 Sneezing, runny nose Pollen Extracts Other (see comments) 10/24/2018 Sneezing Tree And Shrub Pollen Other (see comments) 10/24/2018 [place], [place] trees (Sneezing, runny nose)) Medications Medication Sig Dispensed Refills Start Date End Date Status cholecalciferol (VITAMIN D3) 2,000 Unit tablet Take 2,000 Units by mouth daily. Active ASCORBIC ACID, VITAMIN C, ORAL Take 1 tablet by mouth daily. Active EPINEPHrine 0.3 mg/0.3 mL syringe Inject 0.3 mg intramuscularly as needed for anaphylaxis. Active latanoprost (XALATAN) 0.005 % ophthalmic solution Administer 1 drop into both eyes at bedtime. Active UNABLE TO FIND Place under the tongue 3 (three) times a day. Med Name:antigen drops Active miscellaneous medical supply misc CPAP machine for home use at pressure: 5-16 CM H20 , Heated humidifier x 1, Humidifier chamber x 1, Full face mask with cushion x 1, standard tubing x 1, Headgear x 1, Filters: Disposable x 1pk & Reusable x 1pk, Length of Need: 99 months, Frequency of use: Daily 12/13/2018 Active montelukast (SINGULAIR) 10 mg tablet Take 1 tablet by mouth daily. 04/12/2018 Active albuterol 90 mcg/actuation inhaler Inhale 1-2 Inhalations every 4 (four) hours as needed. 12/13/2018 Active fluticasone propionate (FLONASE) 50 mcg/actuation nasal spray Administer 1 spray into nostril(s) daily. Active sodium chloride (OCEAN) 0.65 % nasal spray SPRAY 2 SPRAYS IN EACH NOSTRIL Q 2 TO 4 HOURS WHILE AWAKE FOR 7 DAYS START FRIDAY 03/09 Active PCV13: pneumococcal conjugate, PF, (Prevnar 13, PF,) 0.5 mL vaccine INJECT 0.5 ML INTRAMUSCULARLY DIRECTED. Active rosuvastatin (CRESTOR) 20 mg tablet Take 1 tablet (20 mg total) by mouth daily. 30 tablet 11 11/23/2023 Active fluticasone furoate-vilanteroL (BREO ELLIPTA DISKUS) 100-25 mcg/actuation inhaler Inhale 1 puff once daily. 60 each 11/29/2023 Active budesonide (Pulmicort) 0.5 mg/2 mL nebulizer solution Inhale 2 mL (0.5 mg total) by nebulization once daily. Rinse mouth with water after use to reduce aftertaste and incidence of candidiasis. Do not swallow. 180 mL 3 12/10/2023 5 Active Hospital, Clinic, or Other Facility Administered Medication Ordered Dose Route Frequency Start Date End Date Status lidocaine-EPINEPHrine 1%-1:200,000 injection 2-50 mL (XYLOCAINE W/EPI)Indications:Basal Cell Carcinoma Skin Other Parts Face 2 - 50 mL inj As needed 02/07/2021 Active oxzqgdwactv-xwiptrylh-VMCTAGY rine 0.25%-1%-1:200,000 injection 2-25 mLIndications:Basal Cell Carcinoma Skin Other Parts Face 2 - 25 mL inj As needed 02/07/2021 Active Active Problems Problem Noted Date Diagnosed Date [...] -with frequent exac of acute asthmatic bronchitis Resolved Problems Problem Noted Date Diagnosed Date Resolved Date Nephrolithiasis 03/28/2020 10/29/2020 Overview (03/28/2020): Added automatically from request for surgery [id number] Asthma With Chronic Obstruct trini Pulmonary Disease 10/24/2018 10/29/2020 Thromboembolism NOS 06/21/2017 10/30/19 21 Overview (10/29/2020): coincided on lower leg Obstructive Sleep Apnea Adult 10/29/2020 Malignant Neoplasm Of Rectum Adenocarcinoma 10/29/2020 Overview (10/24/2018): 2006, s/p endoscopy polypectomy without recurrence Immunizations Name Administration Dates Next Due H1N1 All Forms 06/26/2009 H1N1 Inj 06/26/2009 HZV (ZOSTAVAX) 05/02/2013 Influenza TIV (IM) 03/30/2019 Influenza, Injectable, Mdck, Preservative Free, Quadrivalent 04/16/2020 Influenza, Unspecified 05/06/2018 PCV13 04/28/2014 PPSV23 04/29/2015 RZV (SHINGRIX) 04/16/2020 SARS-COV-2 (COVID-19) - MODERNA(Discontinued) ,08/14/2020 Td (Adult), adsorbed 09/13/2002 Td, (Adult) Unspecified 09/13/2002 Tdap 07/01/2012 influenza trivalent high dose (HD)(PF) 7 influenza trivalent vaccine (6 months and older) (PF) 04/28/2014 Social History Tobacco Use Types Packs/Day Years Used Date Smoking Tobacco: Former Cigarettes 0.5 21.1 0 11/28/1966 - 01/08/1988 Smokeless Tobacco: Former Chew Quit: 1997 Tobacco Cessation:Counseling Given: Not Answered Comments:about 1 pkg a week Alcohol Use [...] often do you attend chur ch or rastafari services? More than 4 times per year 10/29/2020 Do you belong to any clubs o r organizations such as adventism groups, unions, fraternal or athletic groups, or [...] Answer Date Recorded PHQ-2 Score 0 11/15/2020 [facility] - Occupational Stress [...] place to sleep or slept in a skilled nursing (including now)? No 10/29/2020 Nutrition Answer Date [...] on file Sexual Orientation Not on file Last Filed Vital Signs Vital Sign Reading Time Taken Comments Blood Pressure 134/68 11/23/2023 1:02 PM CDT Pulse 72 11/23/2023 1:02 PM CDT Temperature 36.3 ??C (97.3 ??F) 11/29/2023 1:52 PM CD T Respiratory Rate 16 11/15/2020 10:31 AM CDT Oxygen Saturation 96% 11/29/2023 1:52 PM CDT Inhaled Oxygen Concentration - - Weight 111 kg (244 lb 0.8 oz) 11/23/2023 1:02 PM CDT Height 173.4 cm (5' 8.27) 11/23/2023 1:02 PM CD T Body Mass Index 36.82 11/23/2023 1:02 PM CDT Plan of Treatment Upcoming Encounters Date Type Department Care Team (Late st Contact Info) Description 03/13/2024 8:00 AM CDT Procedure visit Department of Dermatology in [place], [place] 200 [place] [phone] Quentin Blevins M.D. 200 [place] [phone] 03/15/2024 2:40 PM CDT Appointment Department of Laboratory Medicine and Pathology, [facility], in [place], [place] [address] [place] [phone] Rekha Munoz M.D. [address] [place] [phone] 03/15/2024 4:15 PM CDT Office Visit Department of Cardiovascular Medicine in [place], [place] [address] [place] [phone] Rekha Munoz M.D. [address] [place] [phone] Medical Devices Implanted Type Area Leather Parts Matcher Device Identifier Shelf Expiration Date Model / Serial / Lot Cmnt Bn Hi Visc Pmma 40 - [id number] Implanted:Qty : 1 on 11/01/2020 by Martinez Titus M.D., Ph.D. at [facility] Bone Cement Right: Knee Tom 6191-1-001 / / Cmnt Bn Hi Visc Pmma 40 - [id number] Implanted:Qty : 1 on 11/01/2020 by Martinez Titus M.D., Ph.D. at [facility] Bone Cement Right: Knee Tom 6191-1-001 / / Cmnt Bn Hi Visc Pmma 40 - [id number] Implanted:Qty : 1 on 11/01/2020 by Martinez Titus M.D., Ph.D. at [facility] Bone Cement Right: Knee [place] 6191-1-001 / / Ins Tib Att Rot Ps Sz8 10 - [id number] Implanted:Qty : 1 on 11/01/2020 by Martinez Titus M.D., Ph.D. at [facility] Knee Implant Right: Knee Depuy Synthes 10/18/2024 1516-50-810 / / [id number] Pat Att 38 - [id number] Implanted:Qty : 1 on 11/01/2020 by Martinez Titus M.D., Ph.D. at [facility] Knee Implant Right: Knee Depuy Synthes 08/18/2025 [id number] / / [id number] Kn Fem Att Rt Cmnt Ps Sz-8 - [id number] Implanted:Qty : 1 on 11/01/2020 by Martinez Titus M.D., Ph.D. at [facility] Knee Implant Right: Knee Depuy Synthes 08/18/2030 [id number] / / [id number] Bsplt Tib Att Crs Rp Cmnt Sz 8 - [id number] Implanted:Qty : 1 on 11/01/2020 by Martinez Titus M.D., Ph.D. at [facility] Knee Implant Right: Knee Depuy Synthes 08/18/2030 [id number] / / [id number] Ocular Lens Ocular Lens Bilatera l: Eye Explanted Type Area Leather Parts Matcher Device Identifier Shelf Expiration Date Model / Serial / Lot Stnt Uret Inl 7fx26 - [id number] Implanted:Qty : 1 on 03/28/2020 by Eloy Espitia M.D. at [facility] Explanted:Qty : 1 on 04/10/2020 at [facility] Ureteral Stent Right: Ureter C.R.Bard [id number] 03/15/2024 [id number] / / [id number] Stnt Uret Inl 6fx26 - [id number] Implanted:Qty : 1 on 04/10/2020 at [facility] Explanted:Qty : 1 on 04/24/2020 at [facility] Ureteral Stent Right: Ureter C.R.Bard [id number] 08/27/2023 [id number] / / [id number] Stnt Uret Inl 6fx26 - [id number] Implanted:Qty : 1 on 04/24/2020 at [facility] Explanted:Qty : 1 on 04/29/2020 Ureteral Stent Right: Ureter C.R.Bard [id number] 08/27/2023 [id number] / / [id number] Procedures Procedure Name Priority Date/Time Associated Diagnosis Comments PATHOLOGY REVIEW OF OUTSIDE MATERIAL Routine 12/28/2023 12:09 PM CDT Malignant Neoplasm Of Nose Basal Cell COMPREHENSIVE METABOLIC PANEL, S/P Routine 11/23/2023 8:06 AM CDT Pain Chest Cardiac Vascular Disease Screening from Last 3 Months or Most Recently Relevant to Health Maintenance Results * Pathology Review of Outside Material (12/28/2023 12:09 PM CDT) 12/31/2023 11:41 AM CDT DTL Report electronically signed by Aga Bowers M.D. I verify that I have examined all relevant slides/materi als for the specimen(s) and rendered or confirmed the diagnosis. 12/31/2023 11:41 AM CDT DTL Material Received A. [id number]: Skin, nose, dorsal, mid ? 2 stained slides 12/31/2023 11:41 AM CDT DTL Interpretation FINAL DIAGNOSIS A. ??Skin, nose, dorsal, mid, [id number], 11/02/2023: Superficial basal cell carcinoma, transected and involving biopsy borders Digital imaging was used in the diagnostic assessment of this case. 12/31/2023 11:41 AM CDT DTL Varies 12/28/2023 12:0 9 PM CDT 12/28/2023 12:10 PM CDT Quentin Blevins M.D. LAB SURG PATH [facility] [address] [place] [address], [facility] DTL [address] [place] [address] * (ABNORMAL) Comprehensive Metabolic Panel (11/23/2023 8:06 AM CDT) Potassium, S 4.3 3.6 - 5.2 mmol/L 11/23/2023 9:02 AM CDT DTL Sodium, S 138 135 - 145 mmol/L 11/23/2023 9:02 AM CDT DTL Chloride, S 103 98 - 107 mmol/L 11/23/2023 9:02 AM CDT DTL Bicarbonate, S 28 22 - 29 mmol/L 11/23/2023 9:02 AM CDT DTL Anion Gap 7 7 - 15 11/23/2023 9:02 AM CDT DTL BUN (Blood Urea Nitrogen), S 15 8 - 24 mg/dL 11/23/2023 9:02 AM CDT DTL Creatinine 1.10 0.74 - 1.35 mg/dL 11/23/2023 9:02 AM CDT DTL Estimated GFR (eGFR) 70 >=60 mL/min/BS A 11/23/2023 9:02 AM CDT DTL Comment: Estimated GFR calculated using the 2020 CKD_EPI creatinine equation. Calcium, Total, S 9.2 8.8 - 10.2 mg/dL 11/23/2023 9:02 AM CDT DTL Glucose, S 167(H) 70 - 140 mg/dL 11/23/2023 9:02 AM CDT DTL Protein, Total, S 6.2(L) 6.3 - 7.9 g/dL 11/23/2023 9:02 AM CDT DTL Albumin, S 4.4 3.5 - 5.0 g/dL 11/23/2023 9:02 AM CDT DTL Aspartate Aminotransferase (AST), S 17 8 - 48 U/L 11/23/2023 9:02 AM CDT DTL Alkaline Phosphatase, S 100 40 - 129 U/L 11/23/2023 9:02 AM CDT DTL Alanine Aminotransferase (ALT), S 22 7 - 55 U/L 11/23/2023 9:02 AM CDT DTL Bilirubin, Total, S 0.9 0.0 - 1.2 mg/dL 11/23/2023 9:02 AM CDT DTL Blood (Blood, Venous) 11/23/2023 8:06 AM CDT 11/23/2023 8:42 AM CDT Reny Booker APRN, C.N.P., M.S.N. LAB BLOOD ADD-ON [facility] [address] [place] [address], [place] DTL [facility] [address] [place] [address] from Last 3 Months or Most Recently Relevant to Health Maintenance Care Teams Automatic Oven Operator Relationship Specialty Start Date End Date Elsewhere, Pcp PCP - General Family Medicine 04/21/20
--- OUTSIDE RECORDS SUMMARY | 2024-03-09 15:09 | XMS_ITS | Encounter Summary ---
Author Organization [facility] Address [address] [place] [address] Care Team Providers Care Automobile Brakes Bonder Name Role Phone Elsewhere, Pcp Primary Care Provider Unavailabl e Encounter Details Date Type Department Care Team (Latest Contact Info) Description 11/29/2023 3:00 PM CDT - 11/29/2023 11:59 PM CDT Hospital Encounter Department of Laboratory Medicine and Pathology, [facility] in [place], [place] [address] [place] [address] Rekha Munoz M.D. [address] [place] [phone] Hyperlipidemia Discharge Disposition: Home or Self Care Social History Tobacco Use Types Packs/Day Years [...] 10/29/2020 How often do you attend chur or yazdanism services? More than 4 times per year 10/29/2020 Do you belong to any clubs o r organizations such as voodoo groups, unions, fraternal or athletic groups, or [...] Answer Date Recorded PHQ-2 Score 0 11/15/2020 [facility] - Occupational Stress Questionnaire Answer Date Recorded [...] on file documented as of this encounter Medications at Time of Discharge Medication Sig Dispensed Refills Start Date End Date albuterol 90 mcg/actuation inhaler Inhale 1-2 Inhalations every 4 (four) hours as needed. 12/13/2018 ASCORBIC ACID, VITAMIN C, ORAL Take 1 tablet by mouth daily. cholecalciferol (VITAMIN D3) 2,000 Unit tablet Take 2,000 Units by mouth daily. EPINEPHrine 0.3 mg/0.3 mL syringe Inject 0.3 mg intramuscularly as needed for anaphylaxis. fluticasone furoate-vilanteroL (BREO ELLIPTA DISKUS) 100-25 mcg/actuation inhaler Inhale 1 puff once daily. 60 each 11 11/29/2023 11/28/2024 fluticasone propionate (FLONASE) 50 mcg/actuation nasal spray Administer 1 spray into nostril(s) daily. latanoprost (XALATAN) 0.005 % ophthalmic solution Administer 1 drop into both eyes at bedtime. miscellaneous medical supply [facility] CPAP machine for home use at pressure: 5-16 CM H20 , Heated humidifier x 1, Humidifier chamber x 1, Full face mask with cushion x 1, standard tubing x 1, Headgear x 1, Filters: Disposable x 1pk & Reusable x 1pk, Length of Need: 99 months, Frequency of use: Daily 12/13/2018 montelukast (SINGULAIR) 10 mg tablet Take 1 tablet by mouth daily. 04/12/2018 PCV13: pneumococcal conjugate, PF, (Prevnar 13, PF,) 0.5 mL vaccine INJECT 0.5 ML INTRAMUSCULARLY DIRECTED. rosuvastatin (CRESTOR) 20 mg tablet Take 1 tablet (20 mg total) by mouth daily. 30 tablet 11 11/23/2023 sodium chloride (OCEAN) 0.65 % nasal spray SPRAY 2 SPRAYS IN EACH NOSTRIL Q 2 TO 4 HOURS WHILE AWAKE FOR 7 DAYS START FRIDAY 03/09 [address] Place under the tongue 3 (three) times a day. Med Name:antigen drops budesonide (PULMICORT) 0.5 mg/2 mL nebulizer solution Inhale 2 mL (0.5 mg total) by nebulization once daily. Rinse mouth with water after use to reduce aftertaste and incidence of candidiasis. Do not swallow. 30 mL 11/29/2023 12/10/2023 documented as of this encounter Plan of Treatment Upcoming Encounters Date Type Department Care Team (Late st Contact Info) Description 03/13/2024 8:00 AM CDT Procedure visit Department of Dermatology in [place], [place] [address] [place] [phone] Quentin Blevins M.D. [address] [place] [phone] 03/15/2024 2:40 PM CDT Appointment Department of Laboratory Medicine and Pathology, [facility], in [place], [place] [address] [place] [phone] Rekha Munoz M.D. [address] [place] [phone] 03/15/2024 4:15 PM CDT Office Visit Department of Cardiovascular Medicine in [place], [place] [address] [place] [phone] Rekha Munoz M.D. [address] [place] [phone] documented as of this encounter Procedures Procedure Name Priority Date/Time Associated Diagnosis Comments LIPID PANEL, S Routine 11/29/2023 3:22 PM CDT Hyperlipidemia documented in this encounter Results * (ABNORMAL) Lipid Panel (11/29/2023 3:22 PM CDT) Triglycerides 64 mg/dL 11/29/2023 4:20 PM CDT DTL Comment: ----REFERENCE VALUE---- Normal: <150 mg/dL Borderline High: 150-199 mg/dL High: 200-499 mg/dL Very High: > or =500 mg/dL Cholesterol, Total 208(H) mg/dL 2023 4:20 PM CDT DTL Comment: ----REFERENCE VALUE---- Desirable: < 200 mg/dL Borderline High: 200 - 239 mg/dL High: > or = 240 mg/dL Cholesterol, LDL, Calculated 111 mg/dL 11/29/2023 4:20 PM CDT DTL Comment: ----REFERENCE VALUE---- Desirable: <100 mg/dL Above Desirable: 100-129 mg/dL Borderline High: 130-159 mg/dL High: 160-189 mg/dL Very High: >=190 mg/dL ----ADDITIONAL INFORMATION---- LDL cholesterol calculated using the Yanez/NIH equation. Cholesterol, HDL, S 86 >=40 mg/dL 11/29/2023 4:20 PM CDT DTL Cholesterol, Non-HDL, Calculated 122 mg/dL 11/29/2023 4:20 PM CDT DTL Comment: ----REFERENCE VALUE---- Desirable: <130 mg/dL Above Desirable: 130-159 mg/dL Borderline High: 160-189 mg/dL High: 190-219 mg/dL Very High: > or =220 mg/dL Fasting (8 HR or more) Yes 11/29/2023 3:56 PM CDT DTL Blood (Blood, Venous) 11/29/2023 3:22 PM CDT 11/29/2023 3:56 PM CDT Rekha Munoz M.D. LAB BLOOD A DD-ON [facility] [address] [place] [address], [facility] [address] [place] [address] documented in this encounter Visit Diagnoses Diagnosis Hyperlipidemia documented in this encounter Care Teams Automobile Brakes Bonder Relationship Specialty Start Date End Date Elsewhere, Pcp PCP - General Family Medicine 04/21/20 documented as of this encounter
--- OUTSIDE RECORDS SUMMARY | 2024-03-09 15:09 | XMS_ITS | Clinical Summary ---
Author Organization [facility] Address [address] [place] [address] Care Team Providers Care Linux Developer Name Role Phone Elsewhere, Pcp Primary Care Provider Unavailabl e Source Comments Patient records contain information from all sites at [facility]. For routine questions regarding patient records, call [phone] during business hours, M-F 8:00 AM - 5:00 PM Central Time. Record requests for emergency care only can be directed to [phone] at any time.[facility] Allergies Active Allergy Reactions Criticality Noted Date Comments Bee Venom Protein (Honey Bee) Other (see comments) 10/09/2013 Blood poisoning Grass Pollen Other (see comments) 01/26/2019 rhinitis Mold Other (see comments) 10/24/2018 Sneezing, runny nose Pollen Extracts Other (see comments) 10/24/2018 Sneezing Tree And Shrub Pollen Other (see comments) 10/24/2018 [place] trees (Sneezing, runny nose)) Medications Medication [...] Med Name:antigen drops Active miscellaneous medical supply [facility] CPAP machine for home use at pressure: [...] puff once daily. 60 each 11 11/29/2023 Active budesonide (Pulmicort) 0.5 mg/2 mL [...] 50 mL inj As needed 02/07/2021 Active njvryvrahmu-egabcljcg-PJIXEHZ rine 0.25%-1%-1:200,000 injection 2-25 mLIndications:Basal Cell Carcinoma [...] (03/28/2020): Added automatically from request for surgery [id number] Asthma With Chronic Obstruct trini Pulmonary Disease 10/24/2018 10/29/2020 Thromboembolism NOS 06/21/2017 10/30/19 21 Overview (10/29/2020): coincided on lower leg Obstructive Sleep Apnea Adult 10/29/2020 Malignant Neoplasm Of Rectum Adenocarcinoma 10/29/2020 Overview (10/24/2018): 2006, s/p endoscopy polypectomy without recurrence Encounters Date Type Department Care Team Description 12/28/2023 12:10 PM CDT Lab RST RO LMP [address] [place] [phone] Quentin Blevins M.D. Malignant Neoplasm Of Nose Basal Cell 12/24/2023 Orders Only Department of Dermatology in [place], [place] [address] [place] [address] Quentin Blevins M.D. Malignant Neoplasm Of Nose Basal Cell (Primary Dx) 12/10/2023 Orders Only Division of Pulmonary Medicine in [place], [place] [address] [place] [address] Richard Bolden M.D. from Last 3 Months Immunizations Name Administration Dates Next Due H1N1 [...] often do you attend chur ch or synagogue services? More than 4 times per year 10/29/2020 Do you belong to any clubs o r organizations such as judaism groups, unions, fraternal or athletic groups, or [...] Answer Date Recorded PHQ-2 Score 0 11/15/2020 [facility] [place] [facility] of Occupat ional Health - [...] place to sleep or slept in a long term (including now)? No 10/29/2020 Nutrition Answer Date [...] CDT Procedure visit Department of Dermatology in [place], [place] 200 [place] [phone] Quentin Blevins M.D. 200 [place] [address] 03/15/2024 2:40 PM CDT Appointment Department of Laboratory Medicine and Pathology, [facility], in [place], [place] [address] [place] [address] Rekha Munoz M.D. [address] [place] [phone] 03/15/2024 4:15 PM CDT Office Visit Department of Cardiovascular Medicine in [place], [place] [address] [place] [phone] Rekha Munoz M.D. [address] [place] [address] Health Maintenance Due Date Last Done Comments CT Colonography 1948 Cologuard 1948 Hepatitis C Screening 1950 Depression Screening (Annual PHQ-2) 06/21/2023 Fall Risk Screen (Annual) 06/21/2023 COVID-19 Vaccine (2022-2 4 season) 2024 01/06/2023, 11/28/2021, 09/11/2020, Additional history exists Influenza Vaccine (#1) 2024 , 04/10/2022, 03/26/2021, Additional history exists Fasting Glucose for Diabetes Screening 11/22/2026 11/23/2023, 11/01/2020, 04/01/2020, Additional history exists Colonoscopy 03/26/2027 03/26/2022, 04/21/2015 Colorectal Cancer Surveillance 03/26/2027 DTaP,Tdap,and Td Vaccines (3 - Td or Tdap) 01/06/2032 01/05/2022, 07/01/2012, 09/13/2002, Additional history exists Zoster Vaccines Completed 04/16/2020, 11/2019, 04/21/2014, Additional history exists Pneumococcal vaccine (65+ years) Completed 03/01/2023, 02/20/2016, 04/29/2015, Additional history exists Medical Devices Implanted Type Area Edge Banding Off Bearer Device Identifier Shelf Expiration Date Model / Serial / Lot Cmnt Bn Hi Visc Pmma 40 - [id number] Implanted:Qty : 1 on 11/01/2020 by Martienz Titus M.D., Ph.D. at [facility] Bone Cement Right: Knee [place] 61 / / Cmnt Bn Hi Visc Pmma 40 - [id number] Implanted:Qty : 1 on 11/01/2020 by Martinez Titus M.D., Ph.D. at [facility] Bone Cement Right: Knee Tom 61 / / Cmnt Bn Hi Visc Pmma 40 - [id number] Implanted:Qty : 1 on 11/01/2020 by Martinez Titus M.D., Ph.D. at [facility] Bone Cement Right: Knee [place] 61 / / Ins Tib Att Rot Ps Sz8 10 - [id number] Implanted:Qty : 1 on 11/01/2020 by Martinez Titus M.D., Ph.D. at [facility] Knee Implant Right: Knee Depuy Synthes 10/18/2024 [id number] / / [id number] Pat Att 38 - [id number] Implanted:Qty : 1 on 11/01/2020 by Martinez Titus M.D., Ph.D. at [facility] Knee Implant Right: Knee Depuy Synthes 08/18/2025 [id number] / / [id number] Kn Fem Att Rt Cmnt Ps Sz-8 - [id number] Implanted:Qty : 1 on 11/01/2020 by Martinez Titus M.D., Ph.D. at [facility] Knee Implant Right: Knee Depuy Synthes 08/18/2030 [id number] / / [id number] Bsplt Tib Att Crs Rp Cmnt Sz 8 - [id number] Implanted:Qty : 1 on 11/01/2020 by Martinez Titus M.D., Ph.D. at [facility] Knee Implant Right: Knee Depuy Synthes 08/18/2030 [id number] / / [id number] Ocular Lens Ocular Lens Bilatera l: Eye Explanted Type Area Edge Banding Off Bearer Device Identifier Shelf Expiration Date Model / Serial / Lot Stnt Uret Inl 7fx26 - [id number] Implanted:Qty : 1 on 03/28/2020 by Eloy Espitia M.D. at [facility] Explanted:Qty : 1 on 04/10/2020 at [facility] Ureteral Stent Right: Ureter C.R.Bard [id number] 03/15/2024 [id number] / / [id number] Stnt Uret Inl 6fx26 - [id number] Implanted:Qty : 1 on 04/10/2020 at [facility] Explanted:Qty : 1 on 04/24/2020 at [facility] Ureteral Stent Right: Ureter C.R.Bard [id number] 08/27/2023 [id number] / / [id number] Stnt Uret Inl 6fx26 - [id number] Implanted:Qty : 1 on 04/24/2020 at [facility] Explanted:Qty : 1 on 04/29/2020 Ureteral Stent Right: Ureter C.R.Bard [id number] 08/27/2023 [id number] / / [id number] Procedures Procedure Name Priority Date/Time Associated Diagnosis [...] 12/31/2023 11:41 AM CDT DTL Material Received Kristi [id number]: Skin, nose, dorsal, mid ? 2 stained slides 12/31/2023 11:41 AM CDT DTL Interpretation FINAL DIAGNOSIS A. ??Skin, nose, dorsal, mid, [id number], 11/02/2023: Superficial basal cell carcinoma, transected and involving biopsy borders Digital imaging was used in the diagnostic assessment of this case. 12/31/2023 11:41 AM CDT DTL Varies 12/28/2023 12:0 9 PM CDT 12/28/2023 12:10 PM CDT Quentin Blevins M.D. LAB SURG PATH [facility] [address] [place] [address], [facility] DTL [address] [facility] [address] [place] [address] * (ABNORMAL) Comprehensive Metabolic Panel (11/23/2023 8:06 [...] 8:06 AM CDT 11/23/2023 8:42 AM CDT Ge Coulter APRNNBernabeP., M.S.N. LAB BLOOD ADD-ON [facility] [address] [place] [address], [facility] [address] [place] [address] from Last 3 Months or Most Recently Relevant to Health Maintenance Care Teams Linux Developer Relationship Specialty Start Date End Date Elsewhere, Pcp PCP - General Family Medicine 04/21/20
--- OUTSIDE RECORDS SUMMARY | 2024-03-09 15:09 | XMS_ITS | Encounter Summary ---
Author Organization [facility] Address [address] [place] [address] Care Team Providers Care Lathe Setup Operator Name Role Phone Elsewhere, Pcp Primary Care Provider Unavailabl e Reason for Referral * Cardiovascular-Diagnostic (Routine) - Closed Specialty Diagnoses / Procedures Referred By Emery rainey Referred To Contact Diagnoses Edema Lower Extremity Procedures Echo Transthoracic (TTE) Rekha Munoz M.D. 200 [place] [address] [facility] Referral ID Status Reason Start Date Expiration Date Visits Re quested Visits Authorized [id number] Closed 11/23/2023 11/22/2024 1 1 Reason for Visit * Cardiovascular-Diagnostic (Routine) - Closed Specialty Diagnoses / Procedures Referred By Emery rainey Referred To Contact Diagnoses Edema Lower Extremity Procedures Echo Transthoracic (TTE) Rekha Munoz M.D. [address] [place] [address] [facility] Referral ID Status Reason Start Date Expiration Date Visits Re quested Visits Authorized [id number] Closed 11/23/2023 11/22/2024 1 1 Encounter Details Date Type Department Care Team (Latest Contact Info) Description 11/30/2023 6:15 AM CDT - 11/30/2023 11:59 PM CDT Hospital Encounter Department of Cardiovascular Diseases in [place], [place] 200 [place] [phone] Rekha Munoz M.D. 200 [place] [address] Edema Lower Extremity Discharge Disposition: Home or Self Care Social [...] How often do you attend chur or restorationist services? More than 4 times per year 10/29/2020 Do you belong to any clubs o r organizations such as faith groups, unions, fraternal or athletic groups, or [...] Answer Date Recorded PHQ-2 Score 0 11/15/2020 [facility] of Occupat ional Health - [...] place to sleep or slept in a senior living (including now)? No 10/29/2020 Nutrition Answer Date [...] 1 puff once daily. 60 each 11/29/2023 11/28/2024 fluticasone propionate (FLONASE) 50 mcg/actuation nasal spray Administer 1 spray into nostril(s) daily. latanoprost (XALATAN) 0.005 % ophthalmic solution Administer 1 drop into both eyes at bedtime. miscellaneous medical supply [facility] CPAP machine for home use at pressure: [...] mg total) by mouth daily. 30 tablet 11/23/2023 sodium chloride (OCEAN) 0.65 % nasal [...] CDT Procedure visit Department of Dermatology in [place], [place] [address] [place] [phone] Quentin Blevins M.D. [address] [place] [phone] 03/15/2024 2:40 PM CDT Appointment Department of Laboratory Medicine and Pathology, [facility] in [place], [place] [address] [place] [phone] Rekha Munoz M.D. [address] [place] [phone] 03/15/2024 4:15 PM CDT Office Visit Department of Cardiovascular Medicine in [place], [place] [address] [place] [phone] Rekha Munoz M.D. [address] [place] [phone] documented as of this encounter Procedures Procedure Name Priority Date/Time Associated Diagnosis Comments (TTE) 2D ECHO DOPPLER COLOR Routine 11/30/2023 7:17 AM CDT Edema Lower Extremity documented in this encounter Results * (TTE) 2D ECHO DOPPLER COLOR (11/30/2023 7:17 AM CDT) Ejection Fraction 58 MC CV EIMS Sinus of Valsalva 38 MC CV EIMS Sinotubular Junction 31 MC CV EIMS Mid-Ascending Aorta 35 MC CV EIMS LV Mass Index 81 MC CV EIMS LV End-Diastolic Diameter 54 MC CV EIMS LV End-Systolic Diameter 37 MC CV EIMS MV E Velocity 0.5 MC CV EIMS MV A Velocity 0.7 MC CV EIMS MV E/A 0.71 MC CV EIMS MV e' Velocity Medial 0.08 MC CV EIMS MV e' Velocity Lateral 0.09 MC CV EIMS MV E/e' Medial 6.3 MC CV EIMS MV E/e' Lateral 5.6 MC CV EIMS Left ventricular stroke volume index 56 MC CV EIMS Cardiac Output 9.48 MC CV EIMS Cardiac Index 4.25 MC CV EIMS LV Interventricular Septal Wall Thickness 10 MC CV EIMS LV Posterior Wall Thickness 8 MC CV EIMS LV Relative Wall Thickness 30 MC CV EIMS Tricuspid Annular S? 0.14 MC CV EIMS TR Vmax 2.1 MC CV EIMS RA Pressure 5 MC CV EIMS RV Systolic Pressure 23 MC CV EIMS AV mean gradient 4 MC CV EIMS Aortic valve area 4.76 MC CV EIMS Aortic Valve Dimensionless Index 0.9 MC CV EIMS LA Volume Index 27 MC CV EIMS Aortic Valve Systolic Peak Velocity 1.3 MC CV EIMS Anatomical Region Laterality Modality Echocardiography 11/30/2023 6:22 AM CDT Impressions 11/30/2023 7:20 AM CDT LEFT VENTRICLE:Normal left ventricular chamber size. Normal left ventricular wall thickness. Calculated 2-D linear left ventricular ejection fraction 58%. Left ventricular volumetric assessment not performed because of image quality. Left ventricular cardiac index 4.25 l/min/m2. No regional wall motion abnormalities. Grade 1/3 left ventricular diastolic dysfunction, consistent with low to normal left ventricular filling pressure. 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 RIGHT VENTRICLE:Normal right ventricular chamber size. Normal right ventricular systolic function. Estimated right ventricular systolic pressure 23 mmHg (right atrial pressure of 5 mmHg). ATRIA:Normal left atrial size. Left atrial volume index 27 ml/m2. Normal right atrial size. CARDIAC VALVES:Trileaflet aortic valve. Sclerotic aortic valve. No aortic valve regurgitation. Mildly thickened mitral valve. Trivial mitral valve regurgitation. Normal pulmonary valve. Normal pulmonary valve systolic velocities. Trivial pulmonary valve regurgitation. Normal tricuspid valve. Trivial tricuspid valve regurgitation. OTHER ECHO FINDINGS:Normal inferior vena cava size with normal inspiratory collapse (>50%). Normal mid ascending aorta diameter of 35 mm. No abdominal aortic aneurysm. Normal abdominal aorta Doppler flow pattern. No atrial level shunt by color flow imaging. No intracardiac mass or thrombus, but the left atrial appendage cannot be visualized adequately with transthoracic echo to exclude thrombus in this location. No ??pericardial effusion. Prominent anterior and apical epicardial fat layer. For the complete report, see the Order-Level Documents. Narrative 11/30/2023 7:20 AM CDT For the complete report, see the Order-Level Documents. Hemodynamics Heart Rate: 88 BPM Blood Pressure: 133 / 73 mmHg ECG: Sinus rhythm Final Impressions 1. Normal left ventricular chamber size, no regional wall motion abnormalities, calculated 2-D linear ejection fraction 58%. 2. Grade 1/3 left ventricular diastolic dysfunction, consistent with low to normal left ventricular filling pressure. 3. Normal right ventricular chamber size, normal systolic function, estimated right ventricular systolic pressure 23 mmHg (right atrial pressure of 5 mmHg). 4. No hemodynamically significant valvular heart disease. 5. Normal inferior vena cava size with normal inspiratory collapse (>50%). 6. No ??pericardial effusion. 7. Compared to the report of 03/22/2019 the following changes have occurred: the ejection fraction and cardiac index are higher. ??Side by side comparison of images performed. Procedure Note Linda Sultana M.D. - 11/30/2023 For the complete report, see the Order-Level Documents. Hemodynamics Heart Rate: 88 BPM Blood Pressure: 133 / 73 mmHg ECG: Sinus rhythm Final Impressions 1. Normal left ventricular chamber size, no regional wall motionabnormalities, calculated 2-D linear ejection fraction 58%. 2. Grade 1/3 left ventricular diastolic dysfunction, consistent with lowto normal left ventricular filling pressure. 3. Normal right ventricular chamber size, normal systolic function,estimated right ventricular systolic pressure 23 mmHg (right atrialpressure of 5 mmHg). 4. No hemodynamically significant valvular heart disease. 5. Normal inferior vena cava size with normal inspiratory collapse(>50%). 6. No pericardial effusion. 7. Compared to the report of 03/22/2019 the following changes haveoccurred: the ejection fraction and cardiac index are higher. Side byside comparison of images performed. Findings LEFT VENTRICLE:Normal left ventricular chamber size. Normal leftventricular wall thickness. Calculated 2-D linear left ventricularejection fraction 58%. Left ventricular volumetric assessment notperformed because of image quality. Left ventricular cardiac index 4.25l/min/m2. No regional wall motion abnormalities. Grade 1/3 leftventricular diastolic dysfunction, consistent with low to normal leftventricular filling pressure. Anomalous left ventricular chord toward theapex. RIGHT VENTRICLE:Normal right ventricular chamber size. Normal rightventricular systolic function. Estimated right ventricular systolicpressure 23 mmHg (right atrial pressure of 5 mmHg). ATRIA:Normal left atrial size. Left atrial volume index 27 ml/m2. Normalright atrial size. CARDIAC VALVES:Trileaflet aortic valve. Sclerotic aortic valve. No aorticvalve regurgitation. Mildly thickened mitral valve. Trivial mitral valveregurgitation. Normal pulmonary valve. Normal pulmonary valve systolicvelocities. Trivial pulmonary valve regurgitation. Normal tricuspid valve.Trivial tricuspid valve regurgitation. OTHER ECHO FINDINGS:Normal inferior vena cava size with normal inspiratorycollapse (>50%). Normal mid ascending aorta diameter of 35 mm. Noabdominal aortic aneurysm. Normal abdominal aorta Doppler flow pattern. Noatrial level shunt by color flow imaging. No intracardiac mass orthrombus, but the left atrial appendage cannot be visualized adequatelywith transthoracic echo to exclude thrombus in this location. Nopericardial effusion. Prominent anterior and apical epicardial fatlayer. For the complete report, see the Order-Level Documents. Rekha Munoz M.D. CV ECHO PRO CEDURES documented in this encounter Visit Diagnoses Diagnosis Edema Lower Extremity documented in this encounter Care Teams Lathe Setup Operator Relationship Specialty Start Date End Date Elsewhere, Pcp PCP - General Family Medicine 04/21/20 documented as of this encounter
--- OUTSIDE RECORDS SUMMARY | 2024-03-09 15:09 | XMS_ITS | Encounter Summary ---
Author Organization [facility] Address [address] [place] [address] Care Team Providers Care Buffing And Polishing Wheel Repairer Name Role Phone Elsewhere, Pcp Primary Care Provider Unavailabl e Encounter Details Date Type Department Care Team (Late st Contact Info) Description 12/10/2023 Orders Only Division of Pulmonary Medicine in [place], [place] [address] [place] [address] Richard Bolden M.D. [address] [place] [phone] Social History Tobacco Use Types Packs/Day Years [...] often do you attend chur ch or latter day services? More than 4 times per year 10/29/2020 Do you belong to any clubs o r organizations such as orthodox groups, unions, fraternal or athletic groups, or [...] Answer Date Recorded PHQ-2 Score 0 11/15/2020 [facility] of Occupat ional Health - Occupational Stress [...] place to sleep or slept in a nursing home (including now)? No 10/29/2020 Nutrition Answer [...] CDT Procedure visit Department of Dermatology in [place], [place] [address] [place] [phone] Quentin Blevins M.D. [address] [place] [phone] 03/15/2024 2:40 PM CDT Appointment Department of Laboratory Medicine and Pathology, [facility] in [place], [place] [address] [place] [phone] Rekha Munoz M.D. [address] [place] [phone] 03/15/2024 4:15 PM CDT Office Visit Department of Cardiovascular Medicine in [place], [place] [address] [place] [phone] Rekha Munoz M.D. [address] [place] [phone] documented as of this encounter Visit Diagnoses Not on filedocumented in this encounter Care Teams Buffing And Polishing Wheel Repairer Relationship Specialty Start Date End Date Elsewhere, Pcp PCP - General Family Medicine 04/21/20 documented as of this encounter
--- OUTSIDE RECORDS SUMMARY | 2024-03-09 15:09 | XMS_ITS | Encounter Summary ---
Author Organization [facility] Address [address] [place] [address] Care Team Providers Care Correctional Treatment Specialist Name Role Phone Elsewhere, Pcp Primary Care Provider Unavailabl e Encounter Details Date Type Department Care Team (Latest Contact Info) Description 11/30/2023 Orders Only Department of Cardiovascular Medicine in [place], [place] [address] [place] [phone] Rekha Munoz M.D. [address] [place] [phone] Hyperlipidemia (Primary Dx) Social History Tobacco Use Types [...] often do you attend chur ch or baptist services? More than 4 times per year 10/29/2020 Do you belong to any clubs o r organizations such as quaker groups, unions, fraternal or athletic groups, or [...] Answer Date Recorded PHQ-2 Score 0 11/15/2020 [facility] of Occupat ional Health - [...] place to sleep or slept in a custodial (including now)? No 10/29/2020 Nutrition Answer Date [...] CDT Procedure visit Department of Dermatology in [place], [place] [address] [place] [phone] Quentin Blevins M.D. [address] [place] [phone] 03/15/2024 2:40 PM CDT Appointment Department of Laboratory Medicine and Pathology, [facility], in [place], [place] [address] [place] [phone] Rekha Munoz M.D. [address] [place] [phone] 03/15/2024 4:15 PM CDT Office Visit Department of Cardiovascular Medicine in [place], [place] [address] [place] [phone] Rekha Munoz M.D. [address] [place] [phone] Scheduled Orders Name Type Priority Associated Diagnoses Orde r Schedule Lipid Panel Lab Routine Hyperlipidemia Expected: 01/30/2024 (Approximate), Expires: 03/01/2025 documented as of this encounter Visit Diagnoses Diagnosis Hyperlipidemia- Primary documented in this encounter Care Teams Correctional Treatment Specialist Relationship Specialty Start Date End Date Elsewhere, Pcp PCP - General Family Medicine 04/21/20 documented as of this encounter
--- OUTSIDE RECORDS SUMMARY | 2024-03-09 15:09 | XMS_ITS ---
Author Organization [facility] Address [address] [place] [address] Care Team Providers Care Endless Track Vehicle Supervisor Name Role Phone Unavailable Unavailable Unavailable Surgery Details Not on file Complications Check Surgery Details section. Procedure Estimated Blood Loss Check Surgery Details section. Procedure Findings Check Surgery Details section. Procedure Specimens Taken Check Surgery Details section.
--- OUTSIDE RECORDS SUMMARY | 2024-03-09 15:10 | XMS_ITS | Encounter Summary ---
Author Organization [facility] Address [address] [place] [address] Care Team Providers Care Hat Brim Curler Name Role Phone Elsewhere, Pcp Primary Care Provider Unavailabl e Reason for Referral * Outpatient (Routine) - Closed Specialty Diagnoses / Procedures Referred By Emery rainey Referred To Contact Urology Diagnoses Elevated Prostate-Specific Antigen Thu Salazar M.D. [address] [place] [address] [facility] Referral ID Status Reason Start Date Expiration Date Visits Re quested Visits Authorized [id number] Closed 03/03/2018 03/03/2019 1 1 Encounter Details Date Type Department Care Team (Late st Contact Info) Description 03/03/2018 [facility] [address] [place] [address] Thu Salazar M.D. [address] [place] [address] Elevated Prostate-Specific Antigen (Primary Dx) Social History Tobacco Use Types Packs/Day Years Used Date Smoking Tobacco: Never Assessed Sex and Gender Information Value Date Recorded Sex Assigned at Not on file Gender Identity Not on file Sexual Orientation Not on file documented as of this encounter Plan of Treatment Upcoming Encounters Date Type Department Care Team (Late st Contact Info) Description 03/13/2024 8:00 AM CDT Procedure visit Department of Dermatology in [place], [place] [address] [place] [address] Quentin Blevins M.D. [address] [place] [address] 03/15/2024 2:40 PM CDT Appointment Department of Laboratory Medicine and Pathology, [facility] in [place], [place] [address] [place] [address] Rekha Munoz M.D. [address] [place] [phone] 03/15/2024 4:15 PM CDT Office Visit Department of Cardiovascular Medicine in [place], [place] [address] [place] [address] Rekha Munoz M.D. [address] [place] [phone] Scheduled Referrals Name Type Priority Associated Diagnoses Orde r Schedule Urology Referral Outpatient Referral Routine Elevated Prostate-Specific Antigen Expected: 03/03/2018 (Approximate), Expires: 03/03/2021 documented as of this encounter Visit Diagnoses Diagnosis Elevated Prostate-Specific Antigen- Primary documented in this encounter Additional Health Concerns Infection Onset Date Last Indicated Resolved Time COVID19 Pending 12/26/2019 12/26/2019 12/27/2019 8 :49 PM CDT COVID19 Pending 03/28/2020 03/28/2020 03/29/2020 8 :07 AM CDT COVID19 Pending 04/07/2020 04/07/2020 04/07/2020 1 1:08 PM CDT COVID19 Pending 04/21/2020 04/21/2020 04/21/2020 8 :19 AM IT PORTFOLIO MANAGER COVID19 Pending 04/21/2020 04/21/2020 04/22/2020 6 :04 AM IT PORTFOLIO MANAGER COVID19 Pending 10/29/2020 10/29/2020 10/29/2020 1 0:23 AM CDT COVID19 Pending 12/30/2020 12/30/2020 12/30/2020 3 :06 PM CDT COVID19 Pending 02/06/2021 02/06/2021 02/06/2021 1 :18 PM CDT COVID19 Pending 11/24/2021 11/24/2021 11/24/2021 1 0:39 AM CDT COVID19 Pending 11/24/2021 11/24/2021 11/25/2021 1 2:37 PM CDT documented as of this encounter Care Teams Hat Brim Curler Relationship Specialty Start Date End Date Elsewhere, Pcp PCP - General Family Medicine 04/21/20 documented as of this encounter
--- OUTSIDE RECORDS SUMMARY | 2024-03-09 15:10 | XMS_ITS | Clinical Summary ---
Author Organization [facility] Address [address] [place] [address] Care Team Providers Care Grocery Bagger Name Role Phone Pcp, Pt Declines Primary Care Provider [phone] Source Comments You are receiving this document as you are listed as the primary care provider,follow-up provider, or the patient has been referred to you for consultation.This is in compliance with the Medicare andMedicaid EHR Incentive Program,which states Providers who transition their patient to another setting of careor provider of care or refers their patient to another provider of care shouldprovide summary care record for each transition of care or referral. [facility] Allergies No known active allergies Medications Medication Sig Dispensed Refills Start Date End Date Status BUDESONIDE OR Active methylPREDNISolone (MEDROL) 4 MG tablet Take 4 mg by mouth daily. Active montelukast (SINGULAIR) 5 MG chewable tablet Chew and swallow 5 mg by mouth every evening. Active cholecalciferol (VITAMIND3) 2000 UNITS tablet Take 2,000 Units by mouth daily. Active Ascorbic Acid (VITAMIN C OR) Active ibuprofen (MOTRIN) 800 MG tablet Take 1 Tab by mouth every 8 hours as needed for Pain. 150 Tab 1 12/01/2016 Active Active Problems No known active problems Social History Tobacco Use Types Packs/Day Years Used Date Smoking Tobacco: Never Sex and Gender Information Value Date Recorded Sex Assigned at Not on file Gender Identity Not on file Sexual Orientation Not on file Last Filed Vital Signs Vital Sign Reading Time Taken Comments Blood Pressure - - Pulse - - Temperature - - Respiratory Rate - - Oxygen Saturation - - Inhaled Oxygen Concentration - - Weight 108.4 kg (239 lb) 12/01/2016 10:38 AM CDT Height 172.7 cm (5' 8) 12/01/2016 10:38 AM CDT Body Mass Index 36.34 12/01/2016 10:38 AM CDT Plan of Treatment Health Maintenance Due Date Last Done Comments Colon Cancer Screening Plan Due 1948 Hep C Screening (Preventive Services) 1948 Adult Preventive Visit 1966 DTaP/Tdap/Td (1 - Tdap) 1967 Zoster/Shingles (1 of 2) 1998 Pneumococcal 65+ Yrs (1 - PCV) 2013 RSV (1 - 1-dose 75+ series) 2023 COVID-19 Vaccine ( - 2023-2 5 season) 2024 Influenza (#1) 2024 HepA Aged Out No longer eligi ble based on patient's age to complete this topic HepB Aged Out No longer eligi ble based on patient's age to complete this topic Hib Aged Out No longer eligi ble based on patient's age to complete this topic IPV (Polio) Aged Out No longer eligi ble based on patient's age to complete this topic MCV4 Aged Out No longer eligi ble based on patient's age to complete this topic Care Teams Grocery Bagger Relationship Specialty Start Date End Date Pcp, [place] [address] PCP - General 12/01/16
--- OUTSIDE RECORDS SUMMARY | 2024-03-09 15:10 | XMS_ITS | Encounter Summary ---
Author Organization [facility] Address [address] [place] [phone] Care Team Providers Care Splunk Consultant Name Role Phone Elsewhere, Pcp Primary Care Provider Unavailabl e Reason for Referral * Outpatient (Routine) - Authorized Specialty Diagnoses / Procedures Referred By Emery t Referred To Contact Dermatology Diagnoses Malignant Neoplasm Of Nose Basal Cell Procedures TERESE MOHS 1-4 sites Roshan Beltrán M.D. [address] [place] [phone] [facility] Referral ID Status Reason Start Date Expiration Date V isits Requested Visits Authorized [id number] Authorized 11/17/2023 11/16/2024 1 1 Encounter Details Date Type Department Care Team (Late st Contact Info) Description 11/16/2023 Orders Only Department of Dermatology in [place], [place] [address] [place] [phone] Roshan Beltrán M.D. [address] [place] [phone] Malignant Neoplasm Of Nose Basal Cell (Primary [...] often do you attend chur ch or congregational services? More than 4 times per year 10/29/2020 Do you belong to any clubs o r organizations such as anglican groups, unions, fraternal or athletic groups, or [...] Answer Date Recorded PHQ-2 Score 0 11/15/2020 [facility] - Occupational [...] place to sleep or slept in a snf (including now)? No 10/29/2020 Nutrition Answer Date [...] CDT Procedure visit Department of Dermatology in [place], [place] [address] [place] [address] Quentin Blevins M.D. [address] [place] [phone] 03/15/2024 2:40 PM CDT Appointment Department of Laboratory Medicine and Pathology, [facility], in [place], [place] [address] [place] [phone] Rekha Munoz M.D. [address] [place] [address] 03/15/2024 4:15 PM CDT Office Visit Department of Cardiovascular Medicine in [place], [place] [address] [place] [address] Rekha Munoz M.D. [address] [place] [address] Scheduled Orders Name Type Priority Associated Diagnoses Orde r Schedule TERESE MOHS 1-4 sites Dermatology Routine Malignant Neoplasm Of Nose Basal Cell Expected: 11/16/2023 (Approximate), Expires: 02/15/2025 documented as of this encounter Visit Diagnoses Diagnosis Malignant Neoplasm Of Nose Basal Cell- Primary documented in this encounter Care Teams Splunk Consultant Relationship Specialty Start Date End Date Elsewhere, Pcp PCP - General Family Medicine 04/21/20 documented as of this encounter
--- OUTSIDE RECORDS SUMMARY | 2024-03-09 15:10 | XMS_ITS | Encounter Summary ---
Author Organization [facility] Address [address] [place] [address] Care Team Providers Care Corporate Claims Examiner Name Role Phone Elsewhere, Pcp Primary Care Provider Unavailabl e Reason for Referral * Outpatient (Routine) - Closed Specialty Diagnoses / Procedures Referred By Emery rainey Referred To Contact Pulmonary Medicine Diagnoses Asthma NOS Asthma With Chronic Obstructive Pulmonary Disease (HCC) Thu Salazar M.D. [address] [place] [address] [facility] Referral ID Status Reason Start Date Expiration Date Visits Re quested Visits Authorized [id number] Closed 09/15/2018 09/15/2019 1 1 Encounter Details Date Type Department Care Team (Late st Contact Info) Description 09/15/2018 [facility] [address] [place] [address] Thu Salazar M.D. [address] [place] [address] Asthma NOS (Primary Dx); Asthma With Chronic Obstructive Pulmonary Disease (HCC) Social History Tobacco Use Types Packs/Day Years [...] CDT Procedure visit Department of Dermatology in [place], [place] [address] [place] [address] Quentin Blevins M.D. [address] [place] [phone] 03/15/2024 2:40 PM CDT Appointment Department of Laboratory Medicine and Pathology, [facility], in [place], [place] [address] [place] [address] Rekha Munoz M.D. [address] [place] [phone] 03/15/2024 4:15 PM CDT Office Visit Department of Cardiovascular Medicine in [place], [place] [address] [place] [address] Rekha Munoz M.D. [address] [place] [phone] Scheduled Referrals Name Type Priority Associated Diagnoses Orde r Schedule Pulmonary Medicine Referral Outpatient Referral Routine Asthma NOS Asthma With Chronic Obstructive Pulmonary Disease (HCC) Expected: 09/15/2018 (Approximate), Expires: 09/15/2021 documented as of this encounter Visit Diagnoses Diagnosis Asthma NOS- Primary Asthma With Chronic Obstructive Pulmonary Disease (HCC) documented in this encounter Additional Health Concerns Infection Onset Date Last Indicated Resolved Time COVID19 Pending 12/26/2019 12/26/2019 12/27/2019 8 :49 PM CDT COVID19 Pending 03/28/2020 03/28/2020 03/29/2020 8 :07 AM CDT COVID19 Pending 04/07/2020 04/07/2020 04/07/2020 1 1:08 PM CDT COVID19 Pending 04/21/2020 04/21/2020 04/21/2020 8 :19 AM ELECTROMEDICAL EQUIPMENT TECHNICIAN COVID19 Pending 04/21/2020 04/21/2020 04/22/2020 6 :04 AM ELECTROMEDICAL EQUIPMENT TECHNICIAN COVID19 Pending 10/29/2020 10/29/2020 10/29/2020 1 0:23 AM CDT COVID19 Pending 12/30/2020 12/30/2020 12/30/2020 3 :06 PM CDT COVID19 Pending 02/06/2021 02/06/2021 02/06/2021 1 :18 PM CDT COVID19 Pending 11/24/2021 11/24/2021 11/24/2021 1 0:39 AM CDT COVID19 Pending 11/24/2021 11/24/2021 11/25/2021 1 2:37 PM CDT documented as of this encounter Care Teams Corporate Claims Examiner Relationship Specialty Start Date End Date Elsewhere, Pcp PCP - General Family Medicine 04/21/20 documented as of this encounter
--- OUTSIDE RECORDS SUMMARY | 2024-03-09 15:10 | XMS_ITS | Encounter Summary ---
Author Organization [facility] Address [address] [place] [address] Care Team Providers Care Gun Number Name Role Phone Elsewhere, Pcp Primary Care Provider Unavailabl e Reason for Visit * Reason Onset Date Comments Triage 11/16/2023 DERM Encounter Details Date Type Department Care Team (Late st Contact Info) Description 11/16/2023 Clinical Communication Department of Dermatology in [place], [place] [address] [place] [address] Prescheduling, Provider Triage (DERM) Social History Tobacco Use Types Packs/Day Years [...] often do you attend chur ch or adventist services? More than 4 times per year 10/29/2020 Do you belong to any clubs o r organizations such as zoroastrianism groups, unions, fraternal or athletic groups, or [...] Answer Date Recorded PHQ-2 Score 0 11/15/2020 [facility] - [...] place to sleep or slept in a intermediate (including now)? No 10/29/2020 Nutrition Answer Date [...] CDT Procedure visit Department of Dermatology in [place], [place] [address] [place] [phone] Quentin Blevins M.D. [address] [place] [phone] 03/15/2024 2:40 PM CDT Appointment Department of Laboratory Medicine and Pathology, [facility] in [place], [place] [address] [place] [phone] Rekha Munoz M.D. [address] [place] [phone] 03/15/2024 4:15 PM CDT Office Visit Department of Cardiovascular Medicine in [place], [place] [address] [place] [phone] Rekha Munoz M.D. [address] [place] [phone] documented as of this encounter Visit Diagnoses Not on filedocumented in this encounter Care Teams Gun Number Relationship Specialty Start Date End Date Elsewhere, Pcp PCP - General Family Medicine 04/21/20 documented as of this encounter
[2024-03-10 01:01] LABS: PCR FLU A Negative PCR FLU A (Negative); PCR FLU B Negative PCR FLU B (Negative); PCR RSV POSITIVE PCR RSV (Negative); SARS PCR* Negative SARS-CoV-2 (Negative)
== END 2024-03-09 15:06 | disposition home or self-care (01) ==
PROVIDERS: PCP Internal Medicine; Visit Provider Nurse Practitioner Family
DX: J11.1 Influenza due to unidentified influenza virus with other respiratory manifestations (principal)
CPT/HCPCS: 80048; 87631

== ENCOUNTER 2025-01-31 13:45 | Outpatient (RCR) | payer OTHER, SELFPAY ==
--- NOTE | 2025-01-17 17:30 | PT.OPEX ---
PT Bells Outpatient Eval PT [facility] Outpatient Eval Start: 01/17/25 13:00 Freq: Status: Active Protocol: Document 01/17/25 13:00 S (Rec: 01/17/25 17:28 [facility] [id number]) E-signed By aKtlin Thomas Physical Therapy Outpatient Evaluation Insurance Information Recert Due Date 04/11/25 Insurance Name Medicare B,Other; See Comments Insurance [employer] advantage Information/Comments Medical Diagnosis Primary osteoarthritis, R ankle and foot Treating Diagnosis R ankle weakness Impaired R ankle ROM Referring MD Lentz Subjective Preferred Name Taye Subjective January 17 2025 : Boy is a 74 year M with complaints of R ankle and foot pain. He currently wears an ankle brace everyday. Date of onset: Middle of August was playing pickleball and he stepped wrong. Dr. nam in [place] noted he tore his calf muscle and injured the lateral ligaments of his foot. Aggravating Factors: uneven ground, inversion Easing Factors: wearing a brace, boot for a few days, ice, Tylenol/Gabapentin (for nerve pain) Method of Injury: playing pickleball Radiation: Denies current radiation Numbness / Tingling: Denies Progression: better Falls: denies Activity: [employer] 3 days/week; works out ( weightlifts) at [employer] [address] (almost every day); walks/ bikes every day for 30 min History of Ankle Injuries: Hx of deltoid ligament tear in high school, various ankle injuries Review of Systems: History obtained from chart review, health history form, and the patient. I am only responding to those symptoms which are directly relevant to my consultation. Recommend the patient follow up with their primary/referring provider for other symptoms. Pain Comments Pain Location/Type: dull ache over CF Current: 1/10 Best: 0/10 Worst: 4/10 Current Work Status Retired Objective Other/Pertinent Functional Tests: Objective Gait: decreased stance time on the R Squats: good depth but very quad dominant -- comes onto toes Balance: 30+ sec bilat with tandem stance but increased sway bilaterally CKC DF: R: 3 cm; L: 5 cm Palpation: tender to palpation over CF and PTFL on R. No tenderness over ATFL or along deltoid ligament. JPA: Talocrural: Anterior: WFL bilat Posterior: WFL bilat Distraction: WFL bilat Subtalar: Lateral: WFL bilat Medial: WFL bilat PROM: Ankle: PF: R: 50 deg with slight tingle on top of foot; L: 58 deg DF (straight knee/gastroc): R: 1 deg; L: 9 deg DF (bent knee): R: 6 deg; L: 18 deg Eversion: R: 30 deg ; L: 30 deg Inversion: R: 20 deg ;L: 30 deg Strength: Ankle: PF: 5/5 bilat and 2/10 pain on R DF: 5/5 bilat Eversion: 5/5 bilat and 2/10 pain on R Inversion: 5/5 bilat and 2/10 pain on R Knee: Quadriceps: 5/5 bilat Hamstrings: 5/5 bilat Special Tests: Inversion Ankle Sprain: Anterior drawer: + on R Talar tilt test: + on R Inversion stress test: + on R ER stress test (high): - bilat Squeeze test (high): - bilat Functional Test LEFS: 72 / 80 = 90.0 % Performed & Score Assessment Assessment/ 2025-01-17: Initial Evaluation Assessment & PT Impression Impression: Taye is a pleasant 74 year male presenting to outpatient physical therapy with primary complaint of R ankle and foot pain. Pertinent physical examination findings include limited gastroc length on the R, impaired DF ROM, tenderness to palpation over the CF and PTFL, limited CKC DF bilaterally, and pain with inversion/PF/ eversion strength testing. Taye presents with positive results on the anterior drawer, inversion stress test and talar tilt test, which along with his RYAN, are likely indicative of an inversion ankle sprain. Functionally, the patient is limited in activities including walking over uneven ground, anything where he has to invert his foot, and participation in recreational sports such as pickleball and racquetball. He requires skilled physical therapy in order to address the above impairments, improve patients symptom status, and assist him in returning to his prior level of function. Barriers to Learning: Primary Functional walking over uneven ground, inversion of the ankle, Limitations playing recreational sports Plan of Care Rehabilitation Good Potential Physical Therapy STG: Goals 1. Patient will be independent with HEP by the end of 4 weeks. 2. Patient will improve CKC to at least 6 cm bilaterally by the end of 4 weeks to improve squatting mechanics and overall function. LT. Patient will demonstrate at least 9 point increase ( MCID) in LEFS score by the end of 8 weeks to demonstrate improved overall function. 2. Patient will demonstrate improved gastroc length by at least 10 deg on the R to demonstrate improved overall function. 3. Patient will be able to walk over uneven ground with no greater than 2/10 pain for at least 30 min by the end of 8 weeks. 4. Patient will be able to play pickleball with no greater than 2/10 pain and no feelings of instability by the end of 8 weeks. Coordination/ Referral Source Communication With Frequency/Duration 1x/week Patient Will Be Completion of LTG(s),Independent w/HEP,Independently Discharged From Progressing Therapy Evaluation Billing Untimed Code 25 Treatment Minutes Complexity Low Certification Information Initial 01/17/25 Certification Date Ending Certification 04/11/25 Date Provider Signature Yes Required Provider Signature POC & Medical Necessity Shows Agreement With Physician NPI Number Write NPI# Here Physician Comment/ : Change Physician Signature Please Sign/Date Here & Date Requested
== END 2025-05-04 08:45 | disposition home or self-care (01) ==
PROVIDERS: PCP Nurse Practitioner Family; Visit Provider Orthopaedic Surgery Sports Medicine
DX: M19.071 Primary osteoarthritis, right ankle and foot (principal); Z51.89 Encounter for other specified aftercare
CPT/HCPCS: 97110; 97140; 97161